=== PATIENT | female | born 1975 | race Asian ===

== ENCOUNTER → 2021-03-19 13:51 | Outpatient (CLI) | payer OTHER, SELFPAY ==
--- NOTE | ~2021-03-19 | MM_ITS ---
EXAMINATION: MM screening jayla BI w angelito HISTORY: Screening mammogram TECHNIQUE: Craniocaudal and mediolateral oblique 3-D tomosynthesis images were obtained and synthetic 2-D images were generated. CAD analysis was submitted and interpreted. COMPARISON: No prior mammogram is available for comparison at this institution. BREAST PARENCHYMAL COMPOSITION: There are scattered areas of fibroglandular density. FINDINGS: There is a biopsy marker in the lower left inner breast; history of prior benign biopsy of microcalcifications at this site. There is no evidence of suspicious mass, calcification, or architec tural distortion to suggest malignancy in either breast. There has been no suspicious interval change . IMPRESSION: 1. No mammographic evidence of malignancy. 2. Recommend routine screening mammography in one year. BI-RADS Category 1: Negative Reviewed, dictated and finalized at location A.
== END ==
PROVIDERS: Visit Provider Obstetrics & Gynecology
DX: Z12.31 Encounter for screening mammogram for malignant neoplasm of breast (principal)
CPT/HCPCS: 77063; 77067

== ENCOUNTER 2021-06-01 01:21 | Day surgery (SDC) | payer OTHER, SELFPAY ==
[2021-04-02 15:17] VITALS: BMI 30.2
[2021-05-20 11:41] VITALS: BMI 30.2
--- NOTE | 2021-06-01 08:03 | P.PNAN_ITS ---
Anes - Initial Pre Proc Eval Procedure: Operation Date: 06/01/21 11:15 Proposed Procedures p Screening Colonoscopy - Medhat Best MD Date/Time: 06/01/21 08:03 Surgeon: Medhat Best MD Pre Op Diagnosis: neoplasm screening Patient Data Age: 46 Gender: F Height: 1.73 m Weight: 90 kg Allergies Allergy/AdvReac Type Severity Reaction Status Date / Time No Known Allergies Allergy Mild Verified 06/01/21 10:22 Home Medications Medication Instructions Recorded Confirmed Type hydrochlorothiazide 12.5 mg PO DAILY 05/28/21 06/01/21 History Patient hx anesthesia problems: none Family hx anesthesia problems: none Results Review: All pre-operative results and documents have been reviewed as part of the pre-operative evaluation. [facility] Past Medical History Medical History (Updated 06/01/21 @ 08:03 by Jeremy Holm MD) HTN (hypertension) Obesity Social History Social History Smoking status: Never smoker Alcohol intake: current Living arrangements: with family Spiritual care concerns: No Anes - Eval Final PreProcedure Day of Procedure 06/01/21 08:03 Patient weight: obese Heart: regular rate and rhythm Lungs: clear to auscultation and normal air movement Airway: Mallampati scale class II Neurological: alert and oriented Last oral intake: >/= 8 hours ASA classification: II Emergent: no Anesthetic plan: proceed Anesthesia type and monitoring: general GIVS Results Review: All pre-operative results and documents have been reviewed as part of the pre-operative evaluation. Informed Consent: The patient's anesthetic plan and its attendant risks and benefits were discussed with the patient/family/POA. Questions were solicited and answers provided to the satisfaction of the patient/family/POA.
[2021-06-01 10:23] VITALS: BP 122/90; PULSE 78; RESP 16; TEMP 36.8; O2SAT 97; BMI 29.7
[2021-06-01] MEDS: LACTATED RINGERS 1,000 ML 150 ML IV CONT (10:26)
--- NOTE | 2021-06-01 10:54 | PM.HPGS ---
History of Present Illness History of Present Illness Consent: Risks, benefits, and alternatives have been discussed and questions answered. Patient agrees to proceed with procedure. Chief complaint: neoplasm screening Narrative: Raheem Deng is a 46 year old female here for first screening colonoscopy Review of Systems Constitutional: Constitutional: Denies headache(s) and Denies weakness Eyes: Eyes: Denies blurry vision ENT: Reports Normal hearing present, Denies headache(s) and Denies neck pain Cardiovascular: Cardiovascular: Denies chest pain and Denies dyspnea Respiratory: Respiratory: Denies dyspnea Gastrointestinal: Gastrointestinal: Reports no additional gastrointestinal complaints Genitourinary: Genitourinary: Denies dysuria Musculoskeletal: Musculoskeletal: Denies neck pain Integumentary/Breasts: Skin/Breast: Denies dry skin Neurologic: Reports Normal hearing present, Denies headache(s) and Denies weakness Psychiatric: Psychiatric: Denies anxiety Endocrine: Endocrine: Denies change in body appearance Hematologic/Lymphatic: Hematologic/Lymphatic: Denies easy bleeding Allergic/Immunologic: Allergic/Immunologic: Denies urticaria PMF Past Medical History Medical History (Updated 06/01/21 @ 10:54 by Medhat Best MD) Colon cancer screening HTN (hypertension) Obesity Social History Social History Smoking status: Never smoker Alcohol intake: current Living arrangements: with family Spiritual care concerns: No Meds Home Medications and Allergies Home Medications Medication Instructions Recorded Confirmed Type hydrochlorothiazide 12.5 mg PO DAILY 05/28/21 06/01/21 History Allergies Allergy/AdvReac Type Severity Reaction Status Date / Time No Known Allergies Allergy Mild Verified 06/01/21 10:22 Vital Signs Vital Signs - 24 hr 06/01/21 10:23 Temperature 98.2 F Pulse Rate 78 Respiratory Rate 16 Blood Pressure 122/90 Pulse Oximetry 97 Exam Const: General: comfortable and no acute distress HENMT: General nose exam: Normal nares present Eyes: General: appearance normal, both eyes and all related structures Neck: Neck: no JVD Resp: Auscultation: clear to auscultation bilaterally Cardio: Rate: regular rate Rhythm: regular rhythm GI: Inspection: non-distended GI Palp: Yes Soft to palpation Skin: General skin exam: normal color Neuro: General: gait normal Speech: normal speech Extrem: General: normal to inspection Psych: Mental Status: mental status grossly normal Assessment and Plan Assessment and plan (1) Colon cancer screening: Code(s): Z12.11 - Encounter for screening for malignant neoplasm of colon Status: Acute Assessment and Plan: colonoscopy
[2021-06-01 11:15] VITALS: BP 106/73; PULSE 73; RESP 21; O2SAT 99
[2021-06-01 11:25] VITALS: BP 118/63; PULSE 72; RESP 16; O2SAT 98
[2021-06-01 11:35] VITALS: BP 121/92; PULSE 66; RESP 20; O2SAT 97
== END 2021-06-01 12:15 | disposition home or self-care (01) ==
PROVIDERS: PCP Family Medicine; Visit Provider Internal Medicine Gastroenterology
PROC: 0DJD8ZZ Inspection of Lower Intestinal Tract, Via Natural or Artificial Opening Endoscopic (ICD-10-PCS; CPT 45378; principal; 2021-06-01 11:15)
DX: Z12.11 Encounter for screening for malignant neoplasm of colon (principal); D12.3 Benign neoplasm of transverse colon; D12.5 Benign neoplasm of sigmoid colon; K64.8 Other hemorrhoids; I10 Essential (primary) hypertension; E66.9 Obesity, unspecified; Z68.29 Body mass index [BMI] 29.0-29.9, adult
CPT/HCPCS: 45385; 88305; J2704; J7120

== ENCOUNTER → 2022-07-01 10:26 | Outpatient (CLI) | payer SELFPAY ==
--- NOTE | ~2022-07-01 | MM_ITS ---
EXAMINATION: MM screening jayla BI w nagelito HISTORY: Screening TECHNIQUE: Craniocaudal and mediolateral oblique 3-D tomosynthesis images were obtained and synthetic 2-D images were generated. CAD analysis was submitted and interpreted. COMPARISON: Comparison to multiple prior studies sequentially, with oldest reviewed study dated 11/30. BREAST PARENCHYMAL COMPOSITION: Breast composed of scattered areas of fibroglandular density FINDINGS: Stable benign-appearing left breast calcifications. There is no evidence of suspicious mass , calcification, or architectural distortion to suggest malignancy in either breast. There has been n o suspicious interval change. IMPRESSION: 1. No mammographic evidence of malignancy. 2. Recommend routine screening mammography in one year. BI-RADS Category 2: Benign finding(s). Reviewed, dictated and finalized at location A. 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
== END ==
PROVIDERS: PCP Nurse Practitioner; Visit Provider Nurse Practitioner
DX: Z12.31 Encounter for screening mammogram for malignant neoplasm of breast (principal)
CPT/HCPCS: 77063; 77067

== ENCOUNTER 2023-07-13 15:57 | Outpatient (CLI) | payer OTHER, SELFPAY ==
--- NOTE | ~2023-07-13 | MM_ITS ---
EXAMINATION: MM screening [facility] BI w angelito HISTORY: Screening mammogram TECHNIQUE: Craniocaudal and mediolateral oblique 3-D tomosynthesis images were obtained and synthetic 2-D images were generated. CAD analysis was submitted and interpreted. COMPARISON: 07/01/2022, 03/19/2021, 01/08/2019, 11/30/2018 BREAST PARENCHYMAL COMPOSITION: The breasts are heterogeneously dense, which may obscure small masses . FINDINGS: There are stable punctate left breast calcifications which are previously undergone biopsy. No suspicious mass, calcification, or architectural distortion are identified in either breast to ramirez ggest malignancy. There has been no suspicious interval change. IMPRESSION: 1. No mammographic evidence of malignancy. 2. Recommend routine screening mammography in one year. BI-RADS Category 2: Benign finding(s). Reviewed, dictated and finalized at location A. T PHLEBOTOMIST
== END 2023-07-13 15:58 ==
PROVIDERS: PCP Nurse Practitioner; Visit Provider Nurse Practitioner
DX: Z12.31 Encounter for screening mammogram for malignant neoplasm of breast (principal)
CPT/HCPCS: 77063; 77067

== ENCOUNTER 2024-08-06 09:04 | Outpatient (CLI) | payer SELFPAY ==
--- NOTE | ~2024-08-06 | MM_ITS ---
EXAMINATION: MM diagnostic jayla LT w angelito HISTORY: Clustered left breast calcifications TECHNIQUE: Additional 3-D tomosynthesis images of the left breast were performed and synthetic 2-D im ages were generated. CAD analysis was submitted and interpreted. COMPARISON: Comparison to multiple prior studies sequentially, with oldest reviewed study dated 04/04. BREAST PARENCHYMAL COMPOSITION: Dense: The breasts are heterogeneously dense, which may obscure small masses FINDINGS: There is a are regional punctate indeterminate calcifications in the lower inner quadrant o f the left breast, middle third. There are no discrete masses or architectural distortion. IMPRESSION: 1. Regional indeterminate clustered calcifications lower inner quadrant of the left breast. 2. Stereotactic left breast biopsy recommended. BI-RADS category 4, suspicious findings. Reviewed, dictated and finalized at location A. 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
== END 2024-08-06 09:05 | disposition home or self-care (01) ==
PROVIDERS: PCP Physician Assistant; Visit Provider Nurse Practitioner
DX: R92.8 Other abnormal and inconclusive findings on diagnostic imaging of breast (principal)
CPT/HCPCS: 77061; 77065; G0279

== ENCOUNTER 2024-08-30 09:26 | Outpatient (CLI) | payer OTHER, SELFPAY ==
--- NOTE | ~2024-08-30 | MM_ITS ---
MM post biopsy diagnostic LT, MM stereotactic specimen LT, MM stereotactic bx LT EXAMINATION: MM post biopsy diagnostic LT, MM stereotactic specimen LT, MM stereotactic bx LT INDICATION: Abnormal mammogram with Calcifications in the left breast. Stereotactic core biopsy is r equested evaluate for malignancy.] BREAST PARENCHYMAL COMPOSITION: Dense: The breasts are heterogeneously dense, which may obscure small masses TECHNIQUE AND FINDINGS: The risks and potential benefits of the procedure were discussed with the patient and written informe d consent was obtained. The patient was placed in the prone position clustered at the table with the breast in craniocaudal compression, and the area of interest was localized and targeted utilizing di gital imaging with stereotaxis. After sterile preparation of the skin, 1% lidocaine was utilized for local anesthesia at the skin pun cture site and 1% lidocaine with epinephrine was utilized for deeper local anesthesia/is about the bi opsy site. A 9G Eviva vacuum assisted biopsy needle was advanced to the level of the calcification o f interest from a cephalad/caudal/medial/lateral approach utilizing stereotactic guidance and a total of 6 tissue core biopsies were obtained. A specimen radiograph demonstrates that the calcifications of interest are included within the tissue cores. A tissue marker clip was then placed at the biopsy site. The needle was removed and hemosta sis was achieved. The patient tolerated the procedure well and there is no evidence of significant i mmediate complication. The patient was given verbal as well as written postprocedural instructions p rior to discharge from the department. Tissue cores were submitted to surgical pathology for histolo gic analysis. A 2-view left unilateral digital mammogram was obtained post procedure and this demonstrates that the tissue marker clip is in expected position.] IMPRESSION: 1. Successful stereotactic biopsy of calcifications in the lower inner quadrant of the left breast w ith post procedure mammogram for marker placement. Please refer to pathology report for histologic a nalysis. Reviewed, dictated and finalized at location B. OMIC CONSULTANT IMPRESSION: 1. Successful stereotactic biopsy of calcifications in the lower inner quadran t of the left breast with post procedure mammogram for marker placement. Pleas e refer to pathology report for histologic analysis. IMPRESSION: 1. Successful stereotactic biopsy of calcifications in the lower inner quadran t of the left breast with post procedure mammogram for marker placement. Pleas e refer to pathology report for histologic analysis.
--- OUTSIDE RECORDS SUMMARY | 2024-08-30 09:34 | XMS_ITS | Patient Health Summary ---
Author Organization [facility] Address [address] [place] [address] Care Team Providers Care Corporate Planner Name Role Phone Unavailable Primary Care Provider Unavailabl e Note from [facility],non-owned Affiliates and Associated Physician Practices is amultiple site organization consisting of ambulatory clinics and hospital sitesin [place], [place], [place] and [place]. This disclosure is being madepursuant to the Care Everywhere program and may not contain all information available regarding this patient. Last updated 18.[facility] Active Problems Problem Noted Date Diagnosed Date Encounter for genetic counseling and testing Maternal age 39 09/03/2014 Social History Tobacco Use Types Packs/Day Years Used Date Smoking Tobacco: Never Assessed Sex and Gender Information Value Date Recorded Sex Assigned at Not on file Gender Identity Not on file Sexual Orientation Not on file Procedures * FIRST TRI NUCHAL TRANSLUCENCY W:SEQ SCREEN(Performed 09/03/2014) Performed for Encounter for nuchal translucency testing (HCC) Results * FIRST TRI NUCHAL TRANSLUCENCY W:SEQ SCREEN (09/03/2014 2:08 PM MATHEMATICS INSTRUCTOR) Anatomical Region Laterality Modality Other 09/03/2014 2:08 PM MATHEMATICS INSTRUCTOR Narrative 09/03/2014 3:42 PM MATHEMATICS INSTRUCTOR [facility] PHONE: FAX: Pat. Name: ALICE BECKMAN Pat. No: [id number] Study Date: 09/03/2014 2:08pm , Age: 11 1975, 39 Weight: 178 lb LMP: 06/12/2014 GA by LMP: 11w6d GA by US: 12w1d GA Selected: 11w6d (LMP) NORTH: 03/19/2015 Referring MD: Neena Fontana MD Mails Supervisor: Zoie Lomas RDMS Hist/Ind: AMA MEASUREMENTS & AGE GROWTH EVALUATION Measurement GA Range Srce %for GA Ratios ----- ---- ------- CRL 5.5 cm 12w1d ([id number]) Hadl CRL 59% GA for sonogram 12w1d ([id number]) based on (CRL) Avg Heart Rate: 164 bpm CLINICAL SUMMARY Study Number: 1 IMPRESSION: 1) Stephenson gestation, 11w6d 2) CRL measurement is consistent with the LMP-based NORTH of 03/19/15 3) The nuchal translucency is subjectively <3 mm RECOMMEND: 1) Await results of noninvasive testing (NIPT) ordered today 2) Detailed anatomic survey around 20 weeks Thank you for allowing us the opportunity to care for your patient. Luisa Black MD <Electronic Signature> 09/03/2014 03:42pm Neena Fontana MD [facility] ORDERABLES
--- OUTSIDE RECORDS SUMMARY | 2024-08-30 09:34 | XMS_ITS | Data Portability ---
Author Organization [facility] [place] Address [address] [place] [address] Care Team Providers Care Seismic Survey Assistant Name Role Phone OSMEL SMITH Primary Care Provider Assessment Encounter Date Assessment Date Assessment LastModified by Organization Details LastModified Time 02/27/2021 02/27/2021 healthy female exam patient declines std testing pap done, colpo if still abnormal, reinforced importance of follow up mammogram ordered and encouraged colonoscopy referral contraception-de clines TSH and A1C, encouraged to get PCP FU 1 year or prn [email or web address] Not available 02/27/2021 13:54:38 03/22/2022 03/22/2022 Annual gynecological exam performed. Patient will come back in a year unless there are new symptoms. [email or web address] Not available 03/22/2022 15:29:41 03/24/2023 03/24/2023 Annual gynecological exam performed. Patient will come back in a year unless there are new symptoms. [email or web address] Not available 03/24/2023 11:01:56 04/26/2024 04/26/2024 Annual gynecological exam performed. Patient will come back in a year unless there are new symptoms. Not available 04/26/2024 10:48:16 Plan of Treatment Reminders Order Date Submit Date Provider Last Modified By Organization Details Last Modified Time Details Appointments None recorded. Lab CBC w/ auto diff 2023 024 [facility] (Lab), [address], [place], [address], 10/18/202 4 10:44:02 CMP, serum or plasma 2023 024 [facility] (Lab), [address], [place], [address], 4 10:44:03 lipid panel, blood 2023 024 [facility] (Lab), [address], [place], [address], 4 10:44:03 TSH, serum or plasma 2023 024 [facility] (Lab), [address], [place], [address], 4 10:44:04 25-hydroxyv itamin D2 + 25-hydroxyv itamin D3, QN, serum or plasma 2023 024 [facility] (Lab), [address], [place], [address], 4 10:44:04 TSH, serum or plasma 2020 021 [facility] (Lab), [address], [place], [address], 1 04:44:58 HbA1c (hemoglobin A1c), blood 2020 021 [facility] (Lab), [address], [place], [address], 1 04:44:59 Referral None recorded. Procedures None recorded. Surgeries None recorded. Imaging MAMMO, screening, digital, bilateral 2022 023 [facility], [address], [place], [address], 4 07:52:49 MAMMO, screening, bilateral 2021 022 [facility], [address], [place], [address], 2 12:28:40 Medication Orders estradiol 1 mg tablet 2023 [facility] #[id number], [address] [facility], [place], [place], [id number], 4 11:44:12 progesteron e micronized 100 mg capsule 2023 [facility] #[id number], [address] [facility], [place], [place], [id number], 4 11:44:12 Patient TargetsNo targets recorded. Patient InstructionsNo instructions recorded. Reason for Referral None Reported. Results Created Date Observation Date Name Description Value Unit Range Abnormal Flag Note LastModifiedBy Organization Detail LastModifiedTime 02/28/2002/27/2021 TSH, REFLE X FREE T4 TSH 2.74 uIU/m L 0.30-5 .33 Not Available [facility] (Lab) [address], [place], [address], 02/28/2021 04:44:58 02/28/2002/27/2021 HEMOG LOBIN A1C hemoglobin A1C 6.3 % 0-5.6 high The Ameri can Diabe j luis Assoc iatio n recom mends that a prima ry goal of thera py debra d be a HBA1C of < 7% and that physi cians shoul d reeva luate the treat ment regim en in patie nts with HBA1C value s consi stent ly > 8%. <5.7% Jacquie l 5.7 - 6.4% Incre ased risk for diabe j luis >=6.5 % Diagn ostic of diabe j luis <7.0% Goal of thera py >8.0% Actio n mimi stesergei Not Available [facility] (Lab) [address], [place], [address], 02/28/2021 04:44:58 02/28/2002/27/2021 IMAGE GUIDE D PAP AND HPV REGAR DLESS image guided Pap, HPV regardless of Pap result SEE RESULT S BELOW CASE REPOR T: Cytol ogy Gynec ologi rah Repor t Case: [id number] Autho andreia joseph Provi freddy: Pam Amador MD Colle cted: 02/27 1306 Order ing Locat ion: [place] Patho log[facility] Recei katie: 02/28 0050 First Scree n: Leo Byrd , CT Speci men: Magda bobby Pap - Image d, Cervi x STATE MENT OF ADEQU ACY: Satis facto ry for evalu ation Trans forma tion zone compo nent prese nt FINAL DIAGN OSIS: Negat rosales for Intra epith elial Lesbrandon n or Robert coon (NIL) Elect artie aguirre betty d by Leo Byrd , CT on 2020 at 5:34 PM ----- ----- ----- ----- ----- ----- ----- ----- ----- ----- ----- ----- ----- ----- ----- ----- ----- ---- HPV RESUL TS: HPV mRNA E6/E7 : No HPV mRNA Detec emilie NOTE: This high risk HPV mRNA assay detec ts fourt een high- risk HPV types (16, 18, 31, 33, 35, 39, 45, 51, 52, 56, 58, 59, 66, 68) witho ut diffe renti ation . COMME NT: Note: This speci men was revie wed by a Cytot echno logis t and/o r Patho logis t (as indic ated in this repor t) after evalu ation using the Thinp rep Imagi ng Syste m. CLINI RAH INFOR MATIO N: Menst rual Statu s: LMP (if appli cable ): 2020 Clini rah Histo ry/Pr eviou s Pap: Type of Neopl kleber (if appli cable ): Signi fican t Clini rah Findi ngs: Other Histo ry: Hormo jay (if appli cable ): PAP EDUCA STEFFI L NOTE: The Pap Test is a scree kanu test with an inher ent false negat rosales rate. Liqui d-bas e sampl ing may decre ase, but will not elimi ada, false negat rosales resul ts. A negat rosales resul t does not precl ude the prese nce and/o r devel opmen t of disea se, since the prese nce of abnor mal cells in the sampl e depen ds on the locat ion of the lesio n and sampl ing techn ique. Yao nued regul ar scree kanu is the best metho d of cance r preve ntion . If repor emilie cytol ogic findi ng do not corre late with physi rah and/o r histo rical findi ngs, furth er inves tigat ion is recom moe d, as clini mariana lockwood nted. Not Available [facility] (Lab) [address], [place], [address], 03/02/2021 18:37:35 03/22/20 22 03/22/2022 IMAGE GUIDE D PAP AND HPV REGAR DLESS image guided Pap, HPV regardless of Pap result SEE RESULT S BELOW CASE REPOR T: Cytol ogy Gynec ologi rah Repor t Case: [id number] Autho rianíbaln g Provi freddy: Nessa Proctor, GALA Colle cted: 03/22 1650 Order ing Locat ion: [place] Patho logy Recei katie: 03/23 0152 First Scree n: Nacha mpass ak, Sivil ay, CT Patho logis t: Latricia Chu MD Speci men: Scree kanu Pap - Image d, Cervi x STATE MENT OF ADEQU ACY: Satis facto ry for evalu ation Trans forma tion zone compo nent prese nt FINAL DIAGN OSIS: Negat rosales for Squam ous Intra epith elial Lesio n. Endom etria l cells prese nt in a woman over 45 years of age. Elect artie aguirre betty d by Latricia Chu MD on 2021 at 11:09 AM ----- ----- ----- ----- ----- ----- ----- ----- ----- ----- ----- ----- ----- ----- ----- ----- ----- ---- HPV RESUL TS: HPV mRNA E6/E7 : No HPV mRNA Detec emilie NOTE: This high risk HPV mRNA assay detec ts fourt een high- risk HPV types (16, 18, 31, 33, 35, 39, 45, 51, 52, 56, 58, 59, 66, 68) witho ut diffe renti ation . COMME NT: Note: This speci men was revie wed by a Cytot echno logis t and/o r Patho logis t (as indic ated in this repor t) after evalu ation using the Thinp rep Imagi ng Syste m. CLINI RAH INFOR MATIO N: Menst rual Statu s: LMP (if appli cable ): Clini rah Histo ry/Pr eviou s Pap: Type of Neopl kleber (if appli cable ): Signi fican t Clini rah Findi ngs: Other Histo ry: Hormo jay (if appli cable ): PAP EDUCA STEFFI L NOTE: Endom etria l cells after age 45, parti cular ly out of phase or after menop ause, may be assoc iated with benig n endom etriu m, hormo nal alter ation s and less commo nly, endom etria l/[place] rine abnor malit ies. Clini rah corre neli n is recom moe d. Not Available [facility] [address], [place], [address], 03/29/2022 12:11:50 03/24/20 23 03/24/2023 IMAGE GUIDE D PAP AND HPV REGAR DLESS image guided Pap, HPV regardless of Pap result SEE RESULT S BELOW CASE REPOR T: Cytol ogy Gynec ologi rah Repor t Case: [id number] Autho andreia joseph Provi freddy: Nessa Proctor NP Colle cted: 03/24 1444 Order ing Locat ion: [place] Patho [place]y Recei katie: 03/25 0321 First Scree n: Padmaja paz, Ramses ed, CT Speci men: Magda bobby Pap - Image d, Cervi x STATE MENT OF ADEQU ACY: Satis facto ry for evalu ation Trans forma tion zone compo nent prese nt FINAL DIAGN OSIS: Negat rosales for Intra epith elial Lesio n or Robert coon (NIL) . Elect artie aguirre betty d by Padmaja paz, Ramses weaver, CT on 2022 at 7:53 PM ----- ----- ----- ----- ----- ----- ----- ----- ----- ----- ----- ----- ----- ----- ----- ----- ----- ---- HPV RESUL TS: HPV mRNA E6/E7 : No HPV mRNA Detec emilie NOTE: This high risk HPV mRNA assay detec ts fourt een high- risk HPV types (16, 18, 31, 33, 35, 39, 45, 51, 52, 56, 58, 59, 66, 68) witho ut diffe renti ation . COMME NT: This speci men was revie wed by a Cytot echno logis t and/o r Patho logis t (as indic ated in this repor t) after evalu ation using the Thinp rep Imagi ng Syste m. CLINI RAH INFOR MATIO N: Menst rual Statu s: LMP (if appli cable ): Clini rah Histo ry/Pr eviou s Pap: Type of Neopl kleber (if appli cable ): Signi fican t Clini rah Findi ngs: Other Histo ry: Hormo jay (if appli cable ): PAP EDUCA STEFFI L NOTE: The Pap Test is a scree kanu test with an inher ent false negat rosales rate. Liqui d-bas ed sampl ing may decre ase, but will not elimi ada, false negat rosales resul ts. A negat rosales resul t does not precl ude the prese nce and/o r devel opmen t of disea se, since the prese nce of abnor mal cells in the sampl e depen ds on the locat ion of the lesio n and sampl ing techn ique. Yao nued regul ar scree kanu is the best metho d of cance r preve ntion . If repor emilie cytol ogic findi ng do not corre late with physi rah and/o r histo rical findi ngs, furth er inves tigat ion is recom moe d, as clini mariana lockwood nted. Not Available [facility] (Lab) [address], [place], [address], 03/27/2023 20:56:20 04/26/20 24 04/26/2024 CBC W/DIF F WBC 5.9 10'3/ uL 3.5-10 .5 Not Available [facility] (Lab) [address], [place], [address], 04/27/2024 10:44:02 04/26/20 24 04/26/2024 CBC W/DIF F RBC 4.85 10'6/ uL (based on docume nted legal sex) 3.80-5 .20 Not Available [facility] (Lab) [address], [place], [address], 04/27/2024 10:44:02 04/26/20 24 04/26/2024 CBC W/DIF F HGB 13.8 g/dL (based on docume nted legal sex) 11.6-1 5.4 Not Available [facility] ([facility]) [address], [place], [address], 04/27/2024 10:44:02 04/26/20 24 04/26/2024 CBC W/DIF F HCT 44.5 % (based on docume nted legal sex) 34.0-4 5.0 Not Available [facility] ([facility]) [address], [place], [address], 04/27/2024 10:44:02 04/26/20 24 04/26/2024 CBC W/DIF F MCV 91.8 fL 80.0-9 9.0 Not Available [facility] (Lab) [address], [place], [address], 04/27/2024 10:44:02 04/26/20 24 04/26/2024 CBC W/DIF F MCH 28.5 pg 27.0-3 4.0 Not Available [facility] ([facility]) [address], [place], [address], 04/27/2024 10:44:02 04/26/20 24 04/26/2024 CBC W/DIF F MCHC 31.0 g/dL 32.0-3 5.5 low Not Available [facility] ([facility]) [address], [place], [address], 04/27/2024 10:44:02 04/26/20 24 04/26/2024 CBC W/DIF F RDW 12.8 % 11.0-1 5.0 Not Available [facility] ([facility]) [address], [place], [address], 04/27/2024 10:44:02 04/26/20 24 04/26/2024 CBC W/DIF F plt 301 10'3/ uL 150-40 0 Not Available [facility] ([facility]) [address], [place], [address], 04/27/2024 10:44:02 04/26/20 24 04/26/2024 CBC W/DIF F MPV 10.4 fL 8.8-12 .1 Not Available [facility] (Lab) [address], [place], [address], 04/27/2024 10:44:02 04/26/20 24 04/26/2024 CBC W/DIF F NRBC's 0.0 % 0.0 Not Available [facility] ([facility]) [address], [place], [address], 04/27/2024 10:44:02 04/26/20 24 04/26/2024 CBC W/DIF F absolute NRBCs 0.0 10'3/ uL no refere nce range establ ished Not Available [facility] ([facility]) [address], [place], [address], 04/27/2024 10:44:02 04/26/20 24 04/26/2024 CBC W/DIF F neutrophils 59.1 % 34.0-7 3.0 Not Available [facility] ([facility]) [address], [place], [address], 04/27/2024 10:44:02 04/26/20 24 04/26/2024 CBC W/DIF F lymphocytes 31.1 % 15.0-5 0.0 Not Available [facility] ([facility]) [address], [place], [address], 04/27/2024 10:44:02 04/26/20 24 04/26/2024 CBC W/DIF F monocytes 5.1 % 1.0-15 .0 Not Available [facility] ([facility]) [address], [place], [address], 04/27/2024 10:44:02 04/26/20 24 04/26/2024 CBC W/DIF F eosinophils 3.6 % 0.0-8. 0 Not Available [facility] ([facility]) [address], [place], [address], 04/27/2024 10:44:02 04/26/20 24 04/26/2024 CBC W/DIF F basophils 0.9 % 0.0-2. 0 Not Available [facility] ([facility]) [address], [place], [address], 04/27/2024 10:44:02 04/26/20 24 04/26/2024 CBC W/DIF F immature granulocytes 0.2 % no define d refere nce range Not Available [facility] ([facility]) [address], [place], [address], 04/27/2024 10:44:02 04/26/20 24 04/26/2024 CBC W/DIF F absolute neutrophils 3.5 10'3/ uL 1.5-8. 0 Not Available [facility] ([facility]) [address], [place], [address], 04/27/2024 10:44:02 04/26/20 24 04/26/2024 CBC W/DIF F absolute lymphocytes 1.8 10'3/ uL 1.0-4. 0 Not Available [facility] ([facility]) [address], [place], [address], 04/27/2024 10:44:02 04/26/20 24 04/26/2024 CBC W/DIF F absolute monocytes 0.3 10'3/ uL 0.2-1. 0 Not Available [facility] ([facility]) [address], [place], [address], 04/27/2024 10:44:02 04/26/20 24 04/26/2024 CBC W/DIF F absolute eosinophils 0.2 10'3/ uL 0.0-0. 6 Not Available [facility] ([facility]) [address], [place], [address], 04/27/2024 10:44:02 04/26/20 24 04/26/2024 CBC W/DIF F absolute basophils 0.1 10'3/ uL 0.0-0. 3 Not Available [facility] ([facility]) [address], [place], [address], 04/27/2024 10:44:02 04/26/20 24 04/26/2024 CBC W/DIF F absolute immature granulocytes 0.0 10'3/ uL 0.00-0 .10 04/27 7:37 AM: P indic ates parti al resul ts on a panel have been relea sed. Addit ional resul ts will follo w. 04/27 7:37 AM: This resul t has been final verif ied. No addit ional or goss ed resul ts are expec emilie. Not Available [facility] ([facility]) [address], [place], [address], 04/27/2024 10:44:02 04/26/20 24 04/26/2024 LIPID PANEL ,AMA (LDL- CALC) total cholesterol 251 mg/dL 0-199 high Not Available [facility] (Lab) [address] [place], [address], 04/27/2024 10:44:03 04/26/20 24 04/26/2024 LIPID PANEL ,AMA (LDL- CALC) triglyceride s 107 mg/dL 0-150 NCEP Refer ence Value s for Trigl yceri santiago: Jacquie l: <150 mg/dL Borde rline High: 150 - 199 mg/dL High: 200 - 499 mg/dL Very High: >/= 500 mg/dL Not Available [facility] (Lab) [address] [place], [address], 04/27/2024 10:44:03 04/26/20 24 04/26/2024 LIPID PANEL ,AMA (LDL- CALC) HDL cholesterol 65 mg/dL >40 Not Available [facility] (Lab) [address] [place], [address], 04/27/2024 10:44:03 04/26/20 24 04/26/2024 LIPID PANEL ,AMA (LDL- CALC) LDL cholesterol 164 mg/dL 0-99 high Cutof f value s recom moe d by the Natio nal Antoinette stero l Educa tion Progr am: TIM ABLE: Antoinette stero l <200 mg/dL LDL <100 mg/dL BORDE RLINE : Antoinette stero l 200-2 39 mg/dL LDL 101-1 59 mg/dL HIGHE R RISK: Antoinette stero l >240 mg/dL LDL >160 mg/dL , HDL <40 mg/dL Not Available [facility] ([facility]) [address], [place], [address], 04/27/2024 10:44:03 04/26/20 24 04/26/2024 LIPID PANEL ,AMA (LDL- CALC) non-HDL cholesterol 186 mg/dL no refere nce range A reaso nable goal for non-H DL antoinette stero l is one that is 30 mg/dL highe r than the LDL antoinette stero l goal. Not Available [facility] ([facility]) [address], [place], [address], 04/27/2024 10:44:03 04/26/20 24 04/26/2024 LIPID PANEL ,AMA (LDL- CALC) chol/HDL ratio 3.9 . 0.0-5. 0 On November 02, 2022, [facility] labor atori es goss ed the equat ion for calcu latin g estim ated low-d ensit y lipop rotei n-cho leste rol (LDL- C) from the Fried raad equat ion to the Yasmeen jonatan/Prema cage equat ion. This new equat ion is only valid for lipid panel s with trigl yceri santiago < 400 mg/dL . Rolyi es edward demon strat ed that this new equat ion will impro ve the accur acy of LDL-C , espec ially in scena yee when LDL-C tari ntrat ions are relat ively low (< 100 mg/dL ), trigl yceri santiago are eleva emilie, or patie nt is non-f astin g. Refer ences : - Min Mosley, Omega Perry , Ramses marr, Andrew Car, Andrew thompson, Junito [facility] , and Eric Garcia . 2013. Comp ariso n of a Novel Metho d vs the Fried raad Equat ion for Estim ating Low-D ensit y Lipop rotei n Antoinette stero l Level s from the Stand semaj Lipid Olivia hinton. SOL: The Journ al of the Ameri can Medic al Assoc iatio n 310 (19): 2060- . - Donovan faye V, Erica J, Brayan faye A, Barry M, Sathish josih R, Oil faye E, Justin crain RS, Jose SR, Yasmeen n SS. Fast ing Versu s Nonfa sting and Low-D ensit y Lipop rotei n Antoinette stero l Accur acy. Circu latio n. 2017Jul 12;137 (1):1 0-19. Not Available [facility] ([facility]) [address], [place], [address], 04/27/2024 10:44:03 04/26/20 24 04/26/2024 CMP(C OMPRE HENSI VE METAB OLIC PANEL ) sodium 142 mmol/ L 133-14 6 Not Available [facility] ([facility]) [address] [place], [address], 04/27/2024 10:44:03 04/26/20 24 04/26/2024 CMP(C OMPRE HENSI VE METAB OLIC PANEL ) potassium 4.0 mmol/ L 3.5-5. 1 Not Available [facility] ([facility]) [address] [place], [address], 04/27/2024 10:44:03 04/26/20 24 04/26/2024 CMP(C OMPRE HENSI VE METAB OLIC PANEL ) chloride 103 mmol/ L 98-107 Not Available [facility] ([facility]) [address] [place], [address], 04/27/2024 10:44:03 04/26/20 24 04/26/2024 CMP(C OMPRE HENSI VE METAB OLIC PANEL ) carbon dioxide 30 mmol/ L 21-31 Not Available [facility] ([facility]) [address] [place], [address], 04/27/2024 10:44:03 04/26/20 24 04/26/2024 CMP(C OMPRE HENSI VE METAB OLIC PANEL ) anion gap 9 mmol/ L 4-13 Not Available [facility] ([facility]) [address], [place], [address], 04/27/2024 10:44:03 04/26/20 24 04/26/2024 CMP(C OMPRE HENSI VE METAB OLIC PANEL ) blood urea nitrogen 17 mg/dL 7-25 Not Available [facility] (Lab) [address], [place], [address], 04/27/2024 10:44:03 04/26/20 24 04/26/2024 CMP(C OMPRE HENSI VE METAB OLIC PANEL ) creatinine 0.86 mg/dL 0.60-1 .30 Not Available [facility] ([facility]) [address], [place], [address], 04/27/2024 10:44:03 04/26/20 24 04/26/2024 CMP(C OMPRE HENSI VE METAB OLIC PANEL ) egfrcr (CKD-epi 2020) 82 mL/mi n/1.7 3_m2 >=60 Not Available [facility] ([facility]) [address], [place], [address], 04/27/2024 10:44:03 04/26/20 24 04/26/2024 CMP(C OMPRE HENSI VE METAB OLIC PANEL ) calcium 9.7 mg/dL 8.3-10 .5 Not Available [facility] ([facility]) [address], [place], [address], 04/27/2024 10:44:03 04/26/20 24 04/26/2024 CMP(C OMPRE HENSI VE METAB OLIC PANEL ) glucose 112 mg/dL 70-100 high Not Available [facility] ([facility]) [address], [place], [address], 04/27/2024 10:44:03 04/26/20 24 04/26/2024 CMP(C OMPRE HENSI VE METAB OLIC PANEL ) protein, total 7.4 g/dL 6.4-8. 3 Not Available [facility] ([facility]) [address], [place], [address], 04/27/2024 10:44:03 04/26/20 24 04/26/2024 CMP(C OMPRE HENSI VE METAB OLIC PANEL ) albumin 4.4 g/dL 3.5-5. 0 Not Available [facility] ([facility]) [address], [place], [address], 04/27/2024 10:44:03 04/26/20 24 04/26/2024 CMP(C OMPRE HENSI VE METAB OLIC PANEL ) ALT 12 units /L 9-43 Not Available [facility] ([facility]) [address], [place], [address], 04/27/2024 10:44:03 04/26/20 24 04/26/2024 CMP(C OMPRE HENSI VE METAB OLIC PANEL ) alkaline phosphatase 71 units /L 34-104 Not Available [facility] ([facility]) [address], [place], [address], 04/27/2024 10:44:03 04/26/20 24 04/26/2024 CMP(C OMPRE HENSI VE METAB OLIC PANEL ) AST 12 units /L 13-39 low Not Available [facility] ([facility]) [address], [place], [address], 04/27/2024 10:44:03 04/26/20 24 04/26/2024 CMP(C OMPRE HENSI VE METAB OLIC PANEL ) bilirubin, total 0.4 mg/dL 0.2-1. 2 Not Available [facility] ([facility]) [address], [place], [address], 04/27/2024 10:44:03 04/26/20 24 04/26/2024 TSH, REFLE X FREE T4 TSH 1.93 uIU/m L 0.30-5 .33 Not Available [facility] ([facility]) [address], [place], [address], 04/27/2024 10:44:04 04/26/20 24 04/26/2024 VITAM IN D, 25-OH (TOTA L D2/D3 ) vitamin D, 25-hydroxy, total 55.2 NG/mL 30.0-1 00.0 [place] [address]ive of Defic iency : <20 ng/mL Sugge stive of Insuf ficie ncy: 20-29 ng/mL Sugge stive of Suffi cienc y: 30-10 0 ng/mL Sugge stive of Toxic ity: >150 ng/mL Not Available [facility] ([facility]) [address], [place], [address], 04/27/2024 10:44:04 03/19/20 21 03/19/2021 MAMMO , scree kanu, bilat eral No observ ation record ed. [facility] [address], [place], [address], 03/29/2021 18:30:18 07/01/20 22 07/01/2022 MAMMO , scree kanu, bilat eral No observ ation record ed. [facility] [address], [place], [address], 03/31/2023 11:45:42 07/14/19 24 07/13/2023 MAMMO , scree kanu, digit al, bilat eral No observ ation record ed. [facility] [address], [place], [address], 07/15/2023 16:27:58 07/23/19 25 07/20/2024 MAMMO , scree kanu, bilat eral No observ ation record ed. [facility] [address], [place], [address], 07/24/2024 15:31:00 08/06/19 25 08/06/2024 MAMMO , diagn ostic , unila teral No observ ation record ed. [email or web address] [facility] [address], [place], [address], 08/13/2024 19:12:33 08/07/19 25 08/06/2024 MAMMO , diagn ostic , unila teral No observ ation record ed. 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 1 10:23:09 Breast composit ion [id number] Completed 201802/27/2021 Inconclu sive mammogra m;Record ed Elsewher e: No [facility] S ource: EHR Child Welfare Social Worker cedric: N Practi ce ID: [id number] Paul lable Time: 01:30:00 PM Pam Duran MD [address], [place], [address], [facility] [address] 10:22:[address] Concept Completed 201802/27/2021 Encntr for general adult medical exam w/o abnormal findings ;Recorde d Elsewher e: No Locat ion: [facility] S ource: EHR Child Welfare Social Worker cedric: N Guy ce ID: [id number] Paul lable Time: 11:00:00 AM Pam Duran MD [address], [place], [address], [facility] 1 10:22:54 Human papillom avirus deoxyrib onucleic acid detected , high risk on cervical specimen [id number] Completed 201802/27/2021 Cervical high risk HPV DNA test positive ;Recorde d Elsewher e: No Locat ion: [facility] S ource: EHR Child Welfare Social Worker cedric: N Guy ce ID: [id number] Paul lable Time: 01:30:00 PM Pam Duran MD [address], [place], [address], [facility] 1 10:22:43 Pregnanc y test negative [id number] Completed 201802/27/2021 Encounte r for pregnanc y test, result negative ;Recorde d Elsewher e: No Locat ion: [facility] S ource: EHR Child Welfare Social Worker cedric: Jonatan Tovar ce ID: [id number] Paul lable Time: 01:30:00 PM Pam Duran MD [address], [place], [address], [facility] 1 10:22:51 Low grade squamous intraepi thelial lesion on cervical Papanico laou smear [id number] Completed 201802/27/2021 Low grade intrepit h lesion cyto smr crvx (LGSIL); Recorded Elsewher e: No Locat ion: [facility] S ource: EHR Child Welfare Social Worker cedric: Jonatan Tovar ce ID: [id number] Paul lable Time: 01:30:00 PM Pam Duran MD [address], [place], [address], [facility] [address] 10:23:[address] Concept Completed 201802/27/2021 Encntr for administrative liaison exam (general ) (routine ) w/o abn findings ;Recorde d Elsewher e: No Locat ion: Rosalina joshi [facility] S ource: EHR Child Welfare Social Worker cedric: N Practi ce ID: [id number] Paul lable Time: 11:00:00 AM Pam Duran MD [address], [place], [address], [facility] 1 10:22:55 Problem Notes None recorded. Procedures Surgical History Date Name Laterality Status Provider Name and Address Organization Details Recorded Time 4 Date of Last Mammogram completed [facility] 04/26/2024 10:51:40 3 Date of Last Pap Smear completed [facility] 04/26/2024 10:51:07 9 Colposcopy completed [facility] 02/27/2021 09:16:55 9 colposcopy completed [facility] 02/27/2021 09:18:34 1 delivery completed [facility] 02/27/2021 09:09:53 0 excision of uterine polyp completed [facility] 02/27/2021 09:10:07 Imaging Results Imaging Date Name Status LastModified by Organiz ation Details LastModified Time 03/19/2021 MAMMO, screening, bilateral completed [facility] [address], [place], [address], 03/29/2021 18:30:18 07/01/2022 MAMMO, screening, bilateral completed [facility] [address], [place], [address], 03/31/2023 11:45:42 07/13/2023 MAMMO, screening, digital, bilateral completed [facility] [address], [place], [address], 07/15/2023 16:27:58 07/20/2024 MAMMO, screening, bilateral completed [facility] [address], [place], [address], 07/24/2024 15:31:00 08/06/2024 MAMMO, diagnostic, unilateral completed [facility] [address], [place], [address], 08/13/2024 19:12:33 08/06/2024 MAMMO, diagnostic, unilateral completed [email or web address] [facility] [address], [place], [address], 08/13/2024 19:13:06 Procedure Notes None recorded. Medical Equipment None Reported. Allergies No known drug allergies Medications Name Sig Start Date Stop Date Status Note LastModified by Organization Details LastModified Time multivita min tablet 02/27 completed Prescrib ed Elsewher e: Yes Loca tion: [facility] M odify By: [email or web address] Encount er DateTime : 11/08/19 11:00:00 AM Not Available Not Available Not Available promethaz ine-DM 6.25 mg-15 mg/5 mL oral syrup TAKE 5 ML BY MOUTH EVERY 4 HOURS FOR 10 DAYS NEEDED 04/26 completed Not Available Not Available Not Available amlodipin e 2.5 mg tablet TAKE 1 TABLET BY MOUTH EVERY DAY 03/24 completed Not Available Not Available Not Available amlodipin e 5 mg tablet TAKE 1 TABLET BY MOUTH EVERY DAY 04/26 completed Not Available Not Available Not Available estradiol 1 mg tablet TAKE 1 TABLET BY MOUTH EVERY DAY active Not Available Not Available No t Available losartan 50 mg-hydroc hlorothia zide 12.5 mg tablet TAKE 1 TABLET BY MOUTH EVERY DAY IN THE MORNING active Not Available Not Available No t Available metformin ER 500 mg tablet,ex tended release 24 hr TAKE 2 TABLETS BY MOUTH EVERY DAY active Not Available Not Available No t Available progester one micronize d 100 mg capsule TAKE 1 CAPSULE BY MOUTH EVERY DAY active Not Available Not Available No t Available losartan 100 mg-hydroc hlorothia zide 12.5 mg tablet TAKE 1 TABLET BY MOUTH EVERY DAY 04/26 completed Not Available Not Available Not Available metformin ER 500 mg 24 hr tablet,ex tended release (gastric retention ) 04/26 completed Not Available Not Available Not Available Vitals Date Recorded Body height Body mass index (BMI) Body weight Systolic blood pressure Diastolic blood pressure Provider Name and Address Organization Details Last Updated DateTime 02/27/2021 172.72 cm 30.1 kg/m2 09158.29 g 127 mm[Hg] 87 mm[Hg] [facility] 1 10:18:36 Date Recorded Body height Body mass index (BMI) Body weight Systolic blood pressure Diastolic blood pressure Provider Name and Address Organization Details Last Updated DateTime 03/22/2022 172.72 cm 31 kg/m2 79239.56 g 112 mm[Hg] 76 mm[Hg] [facility] 2 15:30:07 Date Recorded Body height Body mass index (BMI) Body weight Systolic blood pressure Diastolic blood pressure Provider Name and Address Organization Details Last Updated DateTime 03/24/2023 172.72 cm 31.2 kg/m2 69443.44 g 125 mm[Hg] 83 mm[Hg] [facility] 3 11:02:11 Date Recorded Body height Body mass index (BMI) Body weight Systolic blood pressure Diastolic blood pressure Provider Name and Address Organization Details Last Updated DateTime 04/26/2024 172.72 cm 27.4 kg/m2 13813.63 g 116 mm[Hg] 79 mm[Hg] Eloina Rivera [facility] 4 10:50:04 Social History Question Answer Notes LastModified by Organizat ion Details LastModified Time Tobacco Smoking Status Never Smoker Kat Felix [facility] 02/27/2021 09:10:28 What Is Your Level Of Alcohol Consumption? None Information not available 02/27/2021 Are You Blind Or Do You Have Difficulty Seeing? No Information n ot available 03/22/2022 In The 14 Days Before Symptom Onset, Have You Had Close Contact With A Laboratory-confirm ed COVID-19 While That Case Was Ill? No Information n ot available 04/26/2024 In The 14 Days Before Symptom Onset, Have You Had Close Contact With A Person Who Is Under Investigation For COVID-19 While That Person Was Ill? No Information not available 04/26/2024 Have You Been To An Area Known To Be High Risk For COVID-19? No Information not available 04/26/2024 Are You Deaf Or Do You Have Serious Difficulty Hearing? No Information not available 03/22/2022 What Type Of Diet Are You Following? REGULAR Information n ot available 03/22/2022 Do You Use Any Illicit Or Recreational Drugs? No Information not available 02/27/2021 Has Tobacco Cessation Counseling Been Provided? No Information not available 02/27/2021 Do You Or Have You Ever Used Any Other Forms Of Tobacco Or Nicotine? No Information not available 02/27/2021 Sex: Unknown Functional Status Question Answer Note LastModified by Organizat ion Details LastModified Time Do you have difficulty walking or climbing stairs? No Information not available 03/22/2022 Are you able to walk? YESWOREST Information not available 03/22/2022 Are you able to care for yourself? Yes Information not available 03/22/2022 Do you have difficulty dressing or bathing? No Information not available 03/22/2022 What is your exercise level? Occasional Information not available 03/22/2022 Mental Status None recorded. Family History Nothing Reported Notes:Father: High cholester ol, Hypertension Maternal aunt: Cancer, breast Paternal grandfather: Hypertension, High cholesterol Medical History Condition Response Allergies (Food, seasonal, environmental ) N Other N Breast Cancer N Drug/Latex Allergies/Reactions N Blood Transfusion N Dermatologic Disorders N Lung Disease N Defects or Inherited Disease N Breast Problem N Gestational Diabetes N Hematologic disorders N Anesthesia Complications N History of STI N Deep Vein Thrombosis N Polycystic ovary syndrome N Anxiety Disorder N Autoimmune disease N Arthritis N Infertility N Polyps N Acid Reflux (GERD) N History of abnormal pap N Cancer N Stroke N Varicosities N Neurologic/Epilepsy N Endometriosis N High Cholesterol N Headaches N Fibromyalgia N Kidney Disease N Heart Problems N Kidney or Bladder Problems N Thyroid Problems N GI Problems N Eating Disorder N Anemia N Art (IVF or FET) N Psychiatric Illness N Ovarian Cancer N Diabetes Y Pulmonary (TB, Asthma) N Hepatitis/Liver Disease N No Past Medical History N Eczema N Urinary Tract Infection N Abuse/Domestic Violence N Asthma N Trauma/Violence N Depression/ depression N Heart Disease N Pre-Eclampsia N Hypertension N Osteoporosis N Thrombophilias N Gynecological History Statement/Question Response Flow Light Date of Last Mammogram 07/13/2023 Was last menstrual period normal Y STIs/STDs N HPV Vaccine N Colposcopy 11/21/2018 Duration of Flow (days) 3 Current Control Method Menopause Age at First Child 35 If Post Menopausal, Age at Menopause 47 Sexually Active? Y Menses Monthly N Age of first menstrual cycle 10 Date of Last Pap Smear 03/24/2023 Sexual Problems? Y LMP Approximate N Obstetrics History GPAL:G 2 P 2 0 0 2 Type Value Full Term 2 Living 2 Total 2 Past Encounters Encounter ID Performer Location Encounter Start Date Encounter Closed Date Diagnosis/Indication Diagnosis SNOMED-CT Code Diagnosis ICD10 Code Diagnosis Note [id number] Pam Duran MD [place] [address] [address] 02/27/2021 10:08:04 02/27/2021 14:05:14 Gynecologic examination 58117299 Z01.419 Past pregn chriss history of gestational diabetes mellitus 895862219 Z86.32 Thyroid di sorder screening 232866711 Z13.29 [id number] BRANDON Castillo [place] [place] [address] [address] 03/22/2022 15:21:50 03/22/2022 16:09:59 Screening for malignant neoplasm of breast 223655854 Z12.39 Gynecologi c examination 72222179 Z01.419 Suggested Calcium with Vitamin D 1200-1500m g daily. Patient advised to get an annual flu shot in the fall and she could obtain at [facility] or [facility] care clinic. Also to obtain TDap vaccinatio n if you have not had one in the last 10 years. Recommend yearly mammograms . Encouraged monthly self breast exams. Encourage safe sexual practices, to use condoms and limit partners if not already in a monogamous relationsh ip. Engage in daily exercise of low impact aerobic exercise 45-60 minutes 4-5 times weekly. Avoid tobacco and illicit drugs as well as using moderation with alcohol intake less than 1-2 8 oz beverages daily. This lifestyle behavior pattern will lead to less health conditions and longer life span. If BMI greater than 25 weight watchers or dietary consult advised. All questions have been answered. Patient appears to understand informatio n, but if you have any questions please call or respond to this email. WWEBC - not practicedS tarting to skip some months, likely perimenopa usal. She will continue to track periods.Di scussed even though perimenopa usal, could still occur if BC is not practicedH x of abnormal pap with colpo in 2019 - LGSILLast pap 02/27/2021 NILM HR HPV (-)Pap done todaySTI testing declinedMa mmogram order givenComarian malave UTDHx of maternal aunt with breast cancer in her 40's, mother with colon cancer. Genetic testing discussed, handout given to patient.UT D with PCP - following with PCP on elevated hemoglobin A1CRTC in 1 year or sooner if needed [id number] BRANDON Castillo [place] [address] [address] 03/24/2023 10:54:04 03/24/2023 11:52:41 Gynecologic examination 35717510 Z01.419 Suggested Calcium with Vitamin D 1200-1500m g daily. Patient advised to get an annual flu shot in the fall and she could obtain at [facility] or [facility] care clinic. Also to obtain TDap vaccinatio n if you have not had one in the last 10 years. Recommend yearly mammograms . Encouraged monthly self breast exams. Encourage safe sexual practices, to use condoms and limit partners if not already in a monogamous relationsh ip. Engage in daily exercise of low impact aerobic exercise 45-60 minutes 4-5 times weekly. Avoid tobacco and illicit drugs as well as using moderation with alcohol intake less than 1-2 8 oz beverages daily. This lifestyle behavior pattern will lead to less health conditions and longer life span. If BMI greater than 25 weight watchers or dietary consult advised. All questions have been answered. Patient appears to understand informatio n, but if you have any questions please call or respond to this email. Twin ch discussed the perimenopa usal transition in-depthen couraged to continue tracking cyclesBC declinedpa p updatedSTI testing declinedma mmogram order given, due 07/02UTD with colonoscop yUTD with PCP for routine labsRTC in 1 year or sooner if needed Screening for malignant neoplasm of breast [id number] Z12.39 [id number] Asa Peñaloza MD [place] [address] [address] 04/26/2024 10:15:17 04/26/2024 11:51:07 Gynecologic examination 21832666 Z01.419 Annual gynecologi rah exam performed. Patient will come back in a year unless there are new symptoms. Suggest Calcium with Vitamin D if not eating in diet. Patient advised to get annual flu shot. Recommend yearly physicals and preform monthly breast exams. Genetic testing is available for patients with family history of cancer. Engage in safe sexual practices, use condoms. Encouraged to have daily exercise. Avoid tobacco and illicit drugs, moderation of alcohol. If BMI greater than 25 dietary consult advised. If you have any questions please call or email. mammogram- done colon cancer screening - done Pap smear- today laboratory evaluation - today Menopausal symptom 16193 002 N95.1 Health Concerns Section Related Observation LastModified by Organization Detai ls LastModified Time None Recorded Concern Status LastModified by Organization Details LastModified Time None Recorded Advance Directives Directive None Recorded Payers Encounter Date Sequence Insurance Name Policy Number Policy Dietz Covered Member ID Dietz Member ID Guarantor Name 02/27/2021 1 [facility] Hugo Pernellkimber [id number] Raheem Deng 03/22/2022 1 [facility] Hugo Deng [id number] Raheem Deng 03/24/2023 1 [facility] Hugo Deng [id number] Raheem Deng 04/26/2024 2 [facility] [id number] Hugo Deng [id number] Raheem Deng 04/26/2024 1 [facility] Hugo Deng [id number] Raheem Deng Notes Date Note Type Note Provider Name and Address Organization Details Recorded Time 02/27/2021 text/html Patient is a 45y o who presents for an annual exam. Periods becoming irregular and skipping months. Declines BC. History GDM, no PCP. last pap-10/2018 LSIL, colpo but no follow up mammogram-2018 sexually active-y contraception-none seatbelts-y exercise-y depression-n domestic violence-denies tobacco-n concerns- Pam Duran MD [address], [place], [address], [facility] 02/27/2021 13:55:17 03/22/2022 text/html Annual GYNReport ed bypatient.Menstrua l cycle:Normal menses Urinary symptoms:No hematuria; No incontinence Vulva:No genital lesion Vagina:Normal vaginal discharge Breast:No breast pain; No breast lump; No nipple discharge Current Contraception:Kirsten h control not practiced Sexual complaints:No sexual complaints; No pain during intercourse; Normal libido Menopausal Symptoms:No menopausal symptoms; Normal vaginal lubrication Psychological symptoms:No depression; No anxiety; No PMDD Preventive measures:Encourage self breast examination; Encourage regular exercise; Encourage no tobacco use; Encourage regular mammograms starting age 40 BRANDON Castillo [address], [place], [address], [facility] 03/22/2022 16:07:23 03/24/2023 text/html Annual GYNReport ed bypatient.Menstrua l cycle:Perimenopaus al; LMP 11/30 Urinary symptoms:No hematuria; No incontinence Vulva:No genital lesion Vagina:Normal vaginal discharge Breast:No breast pain; No breast lump; No nipple discharge Current Contraception:Kirsten h control not practiced Sexual complaints:No sexual complaints; No pain during intercourse; Normal libido Menopausal Symptoms:No menopausal symptoms; Normal vaginal lubrication Psychological symptoms:No depression; No anxiety; No PMDD Preventive measures:Encourage self breast examination; Encourage regular exercise; Encourage no tobacco use; Encourage regular mammograms starting age 40; Mammogram performed within the past year; Up to date on colonoscopy screening BRANDON Castillo [address], [place], [address], [facility] 03/24/2023 11:50:17 04/26/2024 text/html Annual GYNReport ed bypatient.History: no gynecologic complaints Urinary symptoms:No hematuria Vulva:No genital lesion Vagina:Normal vaginal discharge Breast:No breast pain; No breast lump Sexual complaints:No sexual complaints;Pain during intercourse Menopausal Symptoms:Hot flashes;Inadequacy of lubrication of vaginal mucosa Psychological symptoms:No depression; No anxiety Preventive measures:Encourage self breast examination; Encourage regular exercise Asa Peñaloza MD [address], [place], [address], [facility] 04/26/2024 11:44:47 OBGyn Episode Ob Episode Information Episode Created Date Number of Fetuses Patient Bloodtype Patient rh Status Prepregnancy Weight lbs Domestic Partner Domestic Partner Phone Father Name Gravel Roofer Status 02/28/20 21 1 CLOSED Fetus Data First Name Last Name Admitted to NICU Weight (g) Sex Living Outcome Pediatric Complications Fetus ID Race Codes Race Delivery Type 3259.96 5704 M [id number] Vaginal Delivery Jeremy Calculation Initial Jeremy Date Initial Exam Date Initial Exam Provider Initial Ultrasound Date Last Menstrual Period Date Ultra Sound Weeks Gestation 0 Eighteen To Twenty Week Jeremy Update Ultra Sound Date Fundal Height At Umbil Quickening Date Ultra Sound Latest Weeks Gestation Final Jeremy Confirmed By Final Jeremy Confirmed Date Final Jeremy Date Ultra Sound Latest Days Gestation 0 0 Menstrual History Last Menstrual Date Menses Monthly On Bcp Conception Prior Menses Frequency Hcg Plus Date Menarche Onset Age Delivery Information Delivery Date Delivery Type Labor Anesthesia Weeks Gestation Incision Type Labor Labor Length Hrs Delivered By Post Complications Tubal Sterilization Discharge Date Comments 5 35.6 GDM Discharge Information Feeding Method Contraceptive Method Maternal HG B and HCT Levels Ob Episode Information Episode Created Date Number of Fetuses Patient Bloodtype Patient rh Status Prepregnancy Weight lbs Domestic Partner Domestic Partner Phone Father Name Gravel Roofer Status 02/28/20 21 1 CLOSED Fetus Data First Name Last Name Admitted to NICU Weight (g) Sex Living Outcome Pediatric Complications Fetus ID Race Codes Race Delivery Type 3628.73 6 M Full Term [id number] Vaginal Delivery Jeremy Calculation Initial Jeremy Date Initial Exam Date Initial Exam Provider Initial Ultrasound Date Last Menstrual Period Date Ultra Sound Weeks Gestation 0 Eighteen To Twenty Week Jeremy Update Ultra Sound Date Fundal Height At Umbil Quickening Date Ultra Sound Latest Weeks Gestation Final Jeremy Confirmed By Final Jeremy Confirmed Date Final Jeremy Date Ultra Sound Latest Days Gestation 0 0 Menstrual History Last Menstrual Date Menses Monthly On Bcp Conception Prior Menses Frequency Hcg Plus Date Menarche Onset Age Delivery Information Delivery Date Delivery Type Labor Anesthesia Weeks Gestation Incision Type Labor Labor Length Hrs Delivered By Post Complications Tubal Sterilization Discharge Date Comments 1 39 GDM Discharge Information Feeding Method Contraceptive Method Maternal HG B and HCT Levels
--- OUTSIDE RECORDS SUMMARY | 2024-08-30 09:34 | XMS_ITS | Clinical Summary ---
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 labor, primary c-sx 5/ breech 11/15/2010 Resolved Problems Problem Noted Date Diagnosed Date Resolved Date Microcalcification of left b reast on mammogram 02/15/2019 04/11/2019 Family History Medical History Relation Name Comments Hypertension Father Healthy Mother Relation Name Status Comments Father Alive Mother Alive Social History Tobacco Use Types Packs/Day Years Used Date Smoking Tobacco: Never Smokeless Tobacco: Never Alcohol Use Standard Drinks/Week Comments Yes 0 (1 standard drink = 0.6 oz pur e alcohol) Comments No Sex and Gender Information Value Date Recorded Sex Assigned at Not on file Legal Sex 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 Gender Identity Not on file Sexual Orientation Not on file Last Filed Vital Signs Vital Sign Reading Time Taken Comments Blood Pressure 138/82 04/11/2019 11:30 AM CDT Pulse 80 04/11/2019 11:30 AM CDT Temperature 36.7 C (98.1 F) 04/11/2019 11:30 AM CDT Respiratory Rate 18 11/19/2010 8:26 AM CDT Oxygen Saturation 98% 04/11/2019 11:30 AM CDT Inhaled Oxygen Concentration - - Weight 86 kg (189 lb 8 oz) 04/11/2019 11:30 AM C DT Height 172.7 cm (5' 8 ) 04/11/2019 11:30 AM CDT Body Mass Index 28.81 04/11/2019 11:30 AM CDT Plan of Treatment Health Maintenance Due Date Last Done Comments DTAP/TDAP/TD VACCINES (1 - Tdap) 1992 HEPATITIS B VACCINES (1 of 3 - 19+ 3-dose series) 1992 CERVICAL CANCER SCREENING 2003 COLORECTAL SCREENING 2018 Colorectal Cancer Screening 2018 FIT-DNA Q 3 years 2018 FIT/FOBT Q 1 year 2018 Flex Sig/CT Colonography Q 5 years 2018 BREAST CANCER SCREENING 01/09/2020 01/08/2019 ZOSTER VACCINE (1 of 2) 2023 INFLUENZA VACCINE (#1) 2024 PNEUMOCOCCAL VACCINE 0-64 YEARS Aged Out No longer eligible based on patient's age to complete this topic Procedures Procedure Name Priority Date/Time Associated Diagnosis Comments MAMMOGRAM REPORT Routine 01/08/2019 from Last 3 Months or Most Recently Relevant to Health Maintenance Results * MAMMOGRAM REPORT (01/08/2019) Anatomical Region Laterality Modality Other us Abstract Provider MAMMO ORDERABLES Final Result from Last 3 Months or Most Recently Relevant to Health Maintenance Insurance [facility] Advance Directives For more information, please contact: [phone] * Full Code (Latest Code Status on File) Date Activated Date Inactivated Comments 11/15/2010 10:05 PM 11/19/2010 2:38 PM * Full Code Date Activated Date Inactivated Comments 11/15/2010 6:20 PM 11/15/2010 10:05 PM Care Teams Honeycomb Blanket Maker Relationship Specialty Start Date End Date Stephanie Heath MD PCP - General Obstetrics and Gynecology 02/15/19
--- OUTSIDE RECORDS SUMMARY | 2024-08-30 09:34 | XMS_ITS | Clinical Summary ---
Author Organization [facility] Address [address] [place] [address] Care Team Providers Care Dross Skimmer Name Role Phone Unavailable Primary Care Provider Unavailabl e Source Comments [facility],non-owned Affiliates and Associated Physician Practices is amultiple site organization consisting of ambulatory clinics and hospital sitesin [place], [place], [place] and [place]. This disclosure is being madepursuant to the Care Everywhere program and may not contain all information available regarding this patient. Last updated 18.[facility] Active Problems Problem Noted Date Diagnosed Date Encounter for genetic counseling and testing Maternal age 39 09/03/2014 Social History Tobacco Use Types Packs/Day Years Used Date Smoking Tobacco: Never Assessed Sex and Gender Information Value Date Recorded Sex Assigned at Not on file Gender Identity Not on file Sexual Orientation Not on file Plan of Treatment Health Maintenance Due Date Last Done Comments COLOGUARD (AGES 45-75) - COL ON CA SCREENING 1973 COLON MONITORING 1973 COLONOSCOPY - COLON CA SCREENING 1973 CT COLONOGRAPHY - COLON CA SCREENING 1973 Colorectal Cancer Screening 1973 FIT - COLON CA SCREENING 1973 FLEX SIG - COLON CA SCREENING 1973 LIPID TESTING 1973 MAMMOGRAM 1973 PAP SMEAR 1973 HIV SCREENING 1988 HEPATITIS C SCREENING 05/10/1991 DTAP/TDAP/TD VACCINES (1 - Tdap) 1992 HEPATITIS B VACCINE (1 of 3 - 19+ 3-dose series) 1992 PNEUMOCOCCAL VACCINE 50+ (1 of 1 - PCV) 2023 ZOSTER VACCINE (1 of 2) 2023 COVID-19 VACCINE (1 - 2023-2 5 season) 2024 INFLUENZA VACCINE (#1) 2024 DEPRESSION SCREENING 07/11/2024 HIB VACCINE Aged Out No longer eligi ble based on patient's age to complete this topic HPV VACCINE Aged Out No longer eligi ble based on patient's age to complete this topic MENINGOCOCCAL (Group B) VACCINE Aged Out No longer eligible based on patient's age to complete this topic MENINGOCOCCAL VACCINE Aged Out No marian carl eligible based on patient's age to complete this topic PNEUMOCOCCAL VACCINE Aged Out No long er eligible based on patient's age to complete this topic
--- OUTSIDE RECORDS SUMMARY | 2024-08-30 09:34 | XMS_ITS | Referral Summary ---
Author Organization [facility] Address [address] [place] [address] Care Team Providers Care Outside Sales Executive Name Role Phone Unavailable Primary Care Provider Unavailabl e Source Comments [facility],non-owned Affiliates and Associated Physician Practices is amultiple site organization consisting of ambulatory clinics and hospital sitesin [place], [place], [place] and [place]. This disclosure is being madepursuant to the Care Everywhere program and may not contain all information available regarding this patient. Last updated 18.[facility] [employer] Active Problems Problem Noted Date Diagnosed Date Encounter for genetic counseling and testing Maternal age 39 09/03/2014 Social History Tobacco Use Types Packs/Day Years Used Date Smoking Tobacco: Never Assessed Sex and Gender Information Value Date Recorded Sex Assigned at Not on file Gender Identity Not on file Sexual Orientation Not on file Plan of Treatment Not on file
--- OUTSIDE RECORDS SUMMARY | 2024-08-30 09:34 | XMS_ITS | Clinical Summary ---
Author Organization [facility] Address [address] [place] [id number] Care Team Providers Care Asset Protection Manager Name Role Phone Elieser Claire MD Primary Care Provider +1- [phone] Allergies No known active allergies Medications amLODIPine (NORVASC) 5 mg tablet Take 1 tablet (5 mg total) by mouth daily 10/15/19 23 Active metFORMIN XR (GLUCOPHAGE XR) 500 mg 24 hr tablet Take 1 tablet (500 mg total) by mouth daily 10/15/19 23 Active progesterone 50 mg/mL injection progesterone 50 mg/mL intramuscular oil Active methylPREDNISol one (MEDROL) 8 mg tablet methylprednisolone 8 mg tablet Active hydroCHLOROthia zide (MICROZIDE) 12.5 mg capsule Take 1 capsule (12.5 mg total) by mouth daily Active leuprolide (LUPRON) 1 mg/0.2 mL injection leuprolide 1 mg/0.2 mL subcutaneous kit Activ e azithromycin (ZITHROMAX) 500 mg tablet azithromycin 500 mg tablet Active chorionic gonadotropin (PREGNYL) 10,000 unit injection chorionic gonadotropin, human 10,000 unit IM powder for solution Active menotropins (Menopur) 75 unit recon soln Menopur 75 unit subcutaneous solution Act rosales penicillin v potassium (VEETID) 500 mg tablet penicillin V potassium 500 mg tablet Active follitropin beta (Follistim AQ) 900 unit/1.08 mL cartridge Follistim AQ 900 unit/1.08 mL subcutaneous cartridge Active losartan-hydroC HLOROthiazide (HYZAAR) 100-12.5 mg per tablet Take 1 tablet by mouth daily 11/06/19 23 Active 114-iron a-g-folate 1 (Prenate Elite, iron asp glyc,) 20 mg iron- 1 mg tablet Prenate Elite (iron asparto glycinate) 20 mg iron-1 mg tablet Activ e Active Problems Problem Noted Date Diagnosed Date Family history of coronary arteriosclerosis 11/09 Female infertility 06/11/2014 Encounters Date Type Department Care Team Description 08/08/2024 Orders Only [facility] Surgery [address] [place] [address] Stacey Jacobson NP Abnormal mammogram (Primary Dx) from Last 3 Months Surgical History Surgery Date Site/Laterality Comments SECTION Medical History Medical History Date Comments Family history of ischemic h eart disease and other diseases of the circulatory system Gestational diabetes Hypertension Headache Family History Medical History Relation Name Comments Hypertension Father Pulmonary embolism Father Stroke Father tumor of colon Mother Relation Name Status Comments Father Alive Mother Social History Tobacco Use Types Packs/Day Years Used Date Smoking Tobacco: Never Tobacco Cessation:Counseling Given: Not Answered Personal Safety Answer Date Recorded Getting School Help Needed Not on file 09/05 Comments Unknown Sex and Gender Information Value Date Recorded Sex Assigned at Not on file 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 Gender Identity Not on file Sexual Orientation Not on file Obstetrics History Last Filed Vital Signs Vital Sign Reading Time Taken Comments Blood Pressure 118/82 12/01/2022 11:02 AM CDT Pulse 77 12/01/2022 11:02 AM CDT Temperature - - Respiratory Rate - - Oxygen Saturation 97% 12/01/2022 11:02 AM CDT Inhaled Oxygen Concentration - - Weight 90.9 kg (200 lb 6.4 oz) 12/01/2022 11:02 AM CDT Height 172.7 cm (5' 8 ) 12/01/2022 11:02 AM CDT Body Mass Index 30.47 12/01/2022 11:02 AM CDT Plan of Treatment Health Maintenance Due Date Last Done Comments Breast Cancer Screening-Mammogram 1973 Cervical Cancer Screening 1973 Colon Cancer Screening-Colonoscopy 1973 Depression Screening 1973 Hepatitis C Screening 1973 Pneumococcal vaccine <65 (1 of 2 - PCV) 1979 DTaP/Tdap/Td Vaccine (1 - Tdap) 1984 Hepatitis B Screening 1991 Regular Well Visit/Exam 18-64 1991 Zoster Vaccine (1 of 2) 1992 Covid-19 Vaccine (3 - Pfizer risk series) 12/28/2020 11/30/2020, 11/09/2020 Influenza Vaccine (#1) 2024 05/21/2019, 2012 Care Teams Asset Protection Manager Relationship Specialty Start Date End Date Elieser Claire MD [facility] [place] [address] PCP - General Family Medicine 11/03/22
--- OUTSIDE RECORDS SUMMARY | 2024-08-30 09:34 | XMS_ITS | Referral Summary ---
Author Organization [facility] Address [address] [place] [phone] Care Team Providers Care Putty Mixer Name Role Phone Elieser Claire MD Primary Care Provider +1- [phone] Encounters Date Type Department Care Team Description 08/08/2024 Orders Only [facility] Surgery [address] [place] [address] Stacey Jacobson NP Abnormal mammogram (Primary Dx) from Last 3 Months Allergies No known active allergies Medications amLODIPine [...] of coronary arteriosclerosis 11/09 Female infertility 06/11/2014 Social History Tobacco Use Types Packs/Day Years Used Date Smoking Tobacco: Never Tobacco Cessation:Counseling Given: Not Answered Personal Safety Answer Date Recorded Getting School Help Needed Not on file 09/05 Comments Unknown Sex and Gender Information Value Date Recorded Sex Assigned at Not on file 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
== END 2024-08-30 09:27 | disposition home or self-care (01) ==
PROVIDERS: PCP Physician Assistant
DX: R92.0 Mammographic microcalcification found on diagnostic imaging of breast (principal); N60.12 Diffuse cystic mastopathy of left breast
CPT/HCPCS: 19081; 77065; 88305

== ENCOUNTER 2024-10-23 00:55 | Day surgery (SDC) | payer OTHER, SELFPAY ==
--- NOTE | 2024-09-10 15:06 | SUR.PREOP ---
Patient had called this morning with complaints of a cold that started yesterday. Patient requested to cancel procedure for 09/11/24. She was given the number for the GI office to get rescheduled when she is feeling better.
[2024-10-15 11:04] VITALS: BMI 27.3
--- OUTSIDE RECORDS SUMMARY | 2024-10-23 00:58 | XMS_ITS | Referral Summary ---
Author Organization [facility] Address [address] [place] [id number] Care Team Providers Care Business Process Analyst Name Role Phone Elieser Claire MD Primary Care Provider +1- [phone] Encounters Date Type Department Care Team Description 08/08/2024 Orders Only 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
--- OUTSIDE RECORDS SUMMARY | 2024-10-23 00:58 | XMS_ITS | Clinical Summary ---
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
--- OUTSIDE RECORDS SUMMARY | 2024-10-23 00:58 | XMS_ITS | Data Portability ---
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 (Lab), [address], [place], [address], 10/18/202 4 10:44:02 CMP, serum or plasma [address] [facility] (Lab), [address], [place], [address], 4 10:44:03 lipid panel, blood [address] [facility] (Lab), [address], [place], [address], 4 10:44:03 TSH, serum or plasma [address] [facility] (Lab), [address], [place], [address], 4 10:44:04 25-hydroxyv itamin D2 + 25-hydroxyv itamin D3, QN, serum or plasma [address] [facility] (Lab), [address], [place], [address], 4 10:44:04 TSH, serum or plasma [address] [facility] (Lab), [address], [place], [address], 1 04:44:58 HbA1c (hemoglobin A1c), blood [address] [facility] (Lab), [address], [place], [address], 1 04:44:59 Referral None recorded. Procedures None recorded. Surgeries None recorded. Imaging MAMMO, screening, digital, bilateral 2022 023 [facility], [address], [place], [address], 4 07:52:49 MAMMO, screening, bilateral 2021 022 [facility], [address], [place], [address], 2 12:28:40 Medication Orders estradiol 1 mg tablet 2023 [id number], [address], [place], [place], [id number], 4 11:44:12 progesteron e micronized 100 mg capsule 2023 [facility] #[id number], [address], [place], [place], [id number], 4 11:44:12 Patient TargetsNo targets recorded. Patient InstructionsNo instructions recorded. Reason for Referral None Reported. Results Created Date Observation Date Name Description Value Unit Range Abnormal Flag Note LastModifiedBy Organization Detail LastModifiedTime 02/28/2002/27/2021 TSH, REFLE X FREE T4 TSH 2.74 uIU/m L 0.30-5 .33 Not Available [facility] (Lab) [address], [place], [address], 02/28/2021 04:44:58 02/28/2002/27/2021 HEMOG LOBIN A1C hemoglobin [...] >8.0% Actio n mimi stesergei Not Available [facility] (Lab) [address], [place], [address], 02/28/2021 04:44:58 02/28/2002/27/2021 IMAGE GUIDE D PAP [...] katie: 02/28 0050 First Scree n: Leo Bryd , CT Speci men: Magda bobby Pap [...] as clini mariana lockwood nted. Not Available [facility] (Lab) [address], [place], [address], 03/02/2021 18:37:35 03/22/20 22 03/22/2022 IMAGE GUIDE [...] s and less commo nly, endom etria l/nancy rine abnor malit ies. Clini rah corre neli n is recom moe d. Not Available [facility] [address], [place], [address], 03/29/2022 12:11:50 03/24/20 23 03/24/2023 IMAGE GUIDE [...] as clini mariana lockwood nted. Not Available [facility] (Lab) [address], [place], [address], 03/27/2023 20:56:20 04/26/20 24 04/26/2024 CBC W/DIF F WBC 5.9 10'3/ uL 3.5-10 .5 Not Available [facility] (Lab) [address], [place], [address], 04/27/2024 10:44:02 04/26/20 24 04/26/2024 CBC W/DIF F RBC 4.85 10'6/ uL (based on docume nted legal sex) 3.80-5 .20 Not Available [facility] (Lab) [address], [place], [address], 04/27/2024 10:44:02 04/26/20 24 04/26/2024 CBC W/DIF F HGB 13.8 g/dL (based on docume nted legal sex) 11.6-1 5.4 Not Available [facility] (Lab) [address], [place], [address], 04/27/2024 10:44:02 04/26/20 24 04/26/2024 CBC W/DIF F HCT 44.5 % (based on docume nted legal sex) 34.0-4 5.0 Not Available [facility] (Lab) [address], [place], [address], 04/27/2024 10:44:02 04/26/20 24 04/26/2024 CBC W/DIF F MCV 91.8 fL 80.0-9 9.0 Not Available [facility] (Lab) [address], [place], [address], 04/27/2024 10:44:02 04/26/20 24 04/26/2024 CBC W/DIF F MCH 28.5 pg 27.0-3 4.0 Not Available [facility] (Lab) [address], [place], [address], 04/27/2024 10:44:02 04/26/20 24 04/26/2024 CBC W/DIF F MCHC 31.0 g/dL 32.0-3 5.5 low Not Available [facility] (Lab) [address], [place], [address], 04/27/2024 10:44:02 04/26/20 24 04/26/2024 CBC W/DIF F RDW 12.8 % 11.0-1 5.0 Not Available [facility] (Lab) [address], [place], [address], 04/27/2024 10:44:02 04/26/20 24 04/26/2024 CBC W/DIF F plt 301 10'3/ uL 150-40 0 Not Available [facility] (Lab) [address], [place], [address], 04/27/2024 10:44:02 04/26/20 24 04/26/2024 CBC W/DIF F MPV 10.4 fL 8.8-12 .1 Not Available [facility] (Lab) [address], [place], [address], 04/27/2024 10:44:02 04/26/20 24 04/26/2024 CBC W/DIF F NRBC's 0.0 % 0.0 Not Available [facility] (Lab) [address], [place], [address], 04/27/2024 10:44:02 04/26/20 24 04/26/2024 CBC W/DIF F absolute NRBCs 0.0 10'3/ uL no refere nce range establ ished Not Available [facility] (Lab) [address], [place], [address], 04/27/2024 10:44:02 04/26/20 24 04/26/2024 CBC W/DIF F neutrophils 59.1 % 34.0-7 3.0 Not Available [facility] (Lab) [address], [place], [address], 04/27/2024 10:44:02 04/26/20 24 04/26/2024 CBC W/DIF F lymphocytes 31.1 % 15.0-5 0.0 Not Available [facility] (Lab) [address], [place], [address], 04/27/2024 10:44:02 04/26/20 24 04/26/2024 CBC W/DIF F monocytes 5.1 % 1.0-15 .0 Not Available [facility] (Lab) [address], [place], [address], 04/27/2024 10:44:02 04/26/20 24 04/26/2024 CBC W/DIF F eosinophils 3.6 % 0.0-8. 0 Not Available [facility] (Lab) [address], [place], [address], 04/27/2024 10:44:02 04/26/20 24 04/26/2024 CBC W/DIF F basophils 0.9 % 0.0-2. 0 Not Available [facility] (Lab) [address], [place], [address], 04/27/2024 10:44:02 04/26/20 24 04/26/2024 CBC W/DIF F immature granulocytes 0.2 % no define d refere nce range Not Available [facility] (Lab) [address], [place], [address], 04/27/2024 10:44:02 04/26/20 24 04/26/2024 CBC W/DIF F absolute neutrophils 3.5 10'3/ uL 1.5-8. 0 Not Available [facility] (Lab) [address], [place], [address], 04/27/2024 10:44:02 04/26/20 24 04/26/2024 CBC W/DIF F absolute lymphocytes 1.8 10'3/ uL 1.0-4. 0 Not Available [facility] (Lab) [address], [place], [address], 04/27/2024 10:44:02 04/26/20 24 04/26/2024 CBC W/DIF F absolute monocytes 0.3 10'3/ uL 0.2-1. 0 Not Available [facility] (Lab) [address], [place], [address], 04/27/2024 10:44:02 04/26/20 24 04/26/2024 CBC W/DIF F absolute eosinophils 0.2 10'3/ uL 0.0-0. 6 Not Available [facility] (Lab) [address], [place], [address], 04/27/2024 10:44:02 04/26/20 24 04/26/2024 CBC W/DIF F absolute basophils 0.1 10'3/ uL 0.0-0. 3 Not Available [facility] (Lab) [address], [place], [address], 04/27/2024 10:44:02 04/26/20 24 04/26/2024 CBC W/DIF [...] resul ts are expec emilie. Not Available [facility] (Lab) [address], [place], [address], 04/27/2024 10:44:02 04/26/20 24 04/26/2024 LIPID PANEL ,AMA (LDL- CALC) total cholesterol 251 mg/dL 0-199 high Not Available [facility] (Lab) [address] [place], [address], 04/27/2024 10:44:03 04/26/20 24 04/26/2024 LIPID PANEL ,AMA (LDL- CALC) triglyceride s 107 mg/dL 0-150 NCEP Refer ence Value s for Trigl yceri santiago: Jacquie l: <150 mg/dL Borde rline High: 150 - 199 mg/dL High: 200 - 499 mg/dL Very High: >/= 500 mg/dL Not Available [facility] (Lab) [address] [place], [address], 04/27/2024 10:44:03 04/26/20 24 04/26/2024 LIPID PANEL ,AMA (LDL- CALC) HDL cholesterol 65 mg/dL >40 Not Available [facility] (Lab) [address] [place], [address], 04/27/2024 10:44:03 04/26/20 24 04/26/2024 LIPID PANEL [...] mg/dL , HDL <40 mg/dL Not Available [facility] (Lab) [address], [place], [address], 04/27/2024 10:44:03 04/26/20 24 04/26/2024 LIPID PANEL ,AMA (LDL- CALC) non-HDL cholesterol 186 mg/dL no refere nce range A reaso nable goal for non-H DL antoinette stero l is one that is 30 mg/dL highe r than the LDL antoinette stero l goal. Not Available [facility] (Lab) [address], [place], [address], 04/27/2024 10:44:03 04/26/20 24 04/26/2024 LIPID PANEL ,AMA (LDL- CALC) chol/HDL ratio 3.9 . 0.0-5. 0 On November 02, 2022, [facility] labor atori es goss ed the equat [...] Ramses marr, Andrew Car, Andrew thompson, [facility] , and Eric Garcia . 2013. Comp [...] J, Brayan faye A, Barry M, Sathish joshi R, Oli faye E, Justin crain RS, Jose SR, Yasmeen n SS. Fast ing Versu s Nonfa sting and Low-D ensit y Lipop rotei n Antoinette stero l Accur acy. Circu latio n. 2017Jul 12;137 (1):1 0-19. Not Available [facility] (Lab) [address], [place], [address], 04/27/2024 10:44:03 04/26/20 24 04/26/2024 CMP(C OMPRE HENSI VE METAB OLIC PANEL ) sodium 142 mmol/ L 133-14 6 Not Available [facility] (Lab) [address] [place], [address], 04/27/2024 10:44:03 04/26/20 24 04/26/2024 CMP(C OMPRE HENSI VE METAB OLIC PANEL ) potassium 4.0 mmol/ L 3.5-5. 1 Not Available [facility] (Lab) [address] [place], [address], 04/27/2024 10:44:03 04/26/20 24 04/26/2024 CMP(C OMPRE HENSI VE METAB OLIC PANEL ) chloride 103 mmol/ L 98-107 Not Available [facility] (Lab) [address] [place], [address], 04/27/2024 10:44:03 04/26/20 24 04/26/2024 CMP(C OMPRE HENSI VE METAB OLIC PANEL ) carbon dioxide 30 mmol/ L 21-31 Not Available [facility] (Lab) [address] [place], [address], 04/27/2024 10:44:03 04/26/20 24 04/26/2024 CMP(C OMPRE HENSI VE METAB OLIC PANEL ) anion gap 9 mmol/ L 4-13 Not Available [facility] (Lab) [address], [place], [address], 04/27/2024 10:44:03 04/26/20 24 04/26/2024 CMP(C OMPRE HENSI VE METAB OLIC PANEL ) blood urea nitrogen 17 mg/dL 7-25 Not Available [facility] (Lab) [address], [place], [address], 04/27/2024 10:44:03 04/26/20 24 04/26/2024 CMP(C OMPRE HENSI VE METAB OLIC PANEL ) creatinine 0.86 mg/dL 0.60-1 .30 Not Available [facility] (Lab) [address], [place], [address], 04/27/2024 10:44:03 04/26/20 24 04/26/2024 CMP(C OMPRE HENSI VE METAB OLIC PANEL ) egfrcr (CKD-epi 2020) 82 mL/mi n/1.7 3_m2 >=60 Not Available [facility] (Lab) [address], [place], [address], 04/27/2024 10:44:03 04/26/20 24 04/26/2024 CMP(C OMPRE HENSI VE METAB OLIC PANEL ) calcium 9.7 mg/dL 8.3-10 .5 Not Available [facility] (Lab) [address], [place], [address], 04/27/2024 10:44:03 04/26/20 24 04/26/2024 CMP(C OMPRE HENSI VE METAB OLIC PANEL ) glucose 112 mg/dL 70-100 high Not Available [facility] (Lab) [address], [place], [address], 04/27/2024 10:44:03 04/26/20 24 04/26/2024 CMP(C OMPRE HENSI VE METAB OLIC PANEL ) protein, total 7.4 g/dL 6.4-8. 3 Not Available [facility] (Lab) [address], [place], [address], 04/27/2024 10:44:03 04/26/20 24 04/26/2024 CMP(C OMPRE HENSI VE METAB OLIC PANEL ) albumin 4.4 g/dL 3.5-5. 0 Not Available [facility] (Lab) [address], [place], [address], 04/27/2024 10:44:03 04/26/20 24 04/26/2024 CMP(C OMPRE HENSI VE METAB OLIC PANEL ) ALT 12 units /L 9-43 Not Available [facility] (Lab) [address], [place], [address], 04/27/2024 10:44:03 04/26/20 24 04/26/2024 CMP(C OMPRE HENSI VE METAB OLIC PANEL ) alkaline phosphatase 71 units /L 34-104 Not Available [facility] (Lab) [address], [place], [address], 04/27/2024 10:44:03 04/26/20 24 04/26/2024 CMP(C OMPRE HENSI VE METAB OLIC PANEL ) AST 12 units /L 13-39 low Not Available [facility] (Lab) [address], [place], [address], 04/27/2024 10:44:03 04/26/20 24 04/26/2024 CMP(C OMPRE HENSI VE METAB OLIC PANEL ) bilirubin, total 0.4 mg/dL 0.2-1. 2 Not Available [facility] (Lab) [address], [place], [address], 04/27/2024 10:44:03 04/26/20 24 04/26/2024 TSH, REFLE X FREE T4 TSH 1.93 uIU/m L 0.30-5 .33 Not Available [facility] (Lab) [address], [place], [address], 04/27/2024 10:44:04 04/26/20 24 04/26/2024 VITAM IN D, 25-OH (TOTA L D2/D3 ) vitamin D, 25-hydroxy, total 55.2 NG/mL 30.0-1 00.0 Sugge stive of Defic iency : <20 ng/mL Sugge stive of Insuf ficie ncy: 20-29 ng/mL Sugge stive of Suffi cienc y: 30-10 0 ng/mL Sugge stive of Toxic ity: >150 ng/mL Not Available [facility] (Lab) [address], [place], [address], 04/27/2024 10:44:04 03/19/20 21 03/19/2021 MAMMO , scree kanu, bilat eral No observ ation record ed. [facility] [address], [place], [address], 03/29/2021 18:30:18 07/01/20 22 07/01/2022 MAMMO , scree kanu, bilat eral No observ ation record ed. [facility] [address], [place], [address], 03/31/2023 11:45:42 07/14/19 24 07/13/2023 MAMMO , scree kanu, digit al, bilat eral No observ ation record ed. [facility] [address], [place], [address], 07/15/2023 16:27:58 07/23/19 25 07/20/2024 MAMMO , scree kanu, bilat eral No observ ation record ed. [facility] [address], [place], [address], 07/24/2024 15:31:00 08/06/19 25 08/06/2024 MAMMO , diagn ostic , unila teral No observ ation record ed. [email or web address] [facility] [address], [place], [address], 08/13/2024 19:12:33 08/07/19 25 08/06/2024 MAMMO , diagn ostic , unila teral No observ ation record ed. 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 03/09/2021 15:56:50 Problems Name Problem SNOMED Code Status Onset Date Resolution Date Notes Provider Name and Address Organization Details Recorded Time Low grade squamous intraepi thelial lesion on cervical Papanico laou smear 4437763696 9105 Active 2018 Pam Duran MD [address], [place], [address], [facility] 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 [address] 10:22:[address] Concept Completed 201802/27/2021 Encntr for general adult medical exam w/o abnormal findings ;Recorde d Elsewher e: No Locat ion: [facility] S ource: [employer] cedric: N Guy ce ID: [id number] Paul lable Time: 11:00:00 AM Pam Duran MD [address], [place], [address], [facility] 1 10:22:54 Human papillom avirus deoxyrib onucleic acid detected , high risk on cervical specimen [id number] Completed 201802/27/2021 Cervical high risk HPV DNA test positive ;Recorde d Elsewher e: No Locat ion: [facility] S ource: [employer] cedric: N Guy ce ID: [id number] Paul lable Time: 01:30:00 PM Pam Duran MD [address], [place], [address], [facility] 1 10:22:43 Pregnanc y test negative [id number] Completed 201802/27/2021 Encounte r for pregnanc y test, result negative ;Recorde d Elsewher e: No Locat ion: [facility] S ource: [employer] cedric: Jonatan Tovar ce ID: [id number] Paul lable Time: 01:30:00 PM Pam Duran MD [address], [place], [address], [facility] 1 10:22:51 Low grade squamous intraepi thelial lesion on cervical Papanico laou smear [id number] 9105 Completed 201802/27/2021 Low grade intrepit h lesion cyto smr crvx (LGSIL); Recorded Elsewher e: No Locat ion: [facility] S ource: [employer] cedric: Jonatan Tovar ce ID: [id number] Paul lable Time: 01:30:00 PM Pam Duran MD [address], [place], [address], [facility] 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 1 10:22:55 Problem Notes None recorded. Procedures Surgical History Date Name Laterality Status Provider Name and Address Organization Details Recorded Time 4 Date of Last Mammogram completed [facility] 04/26/2024 10:51:40 3 Date of Last Pap Smear completed [facility] 04/26/2024 10:51:07 [address] [facility] 02/27/2021 09:16:55 [address] [facility] 02/27/2021 09:18:[address] [facility] 02/27/2021 09:09:53 0 excision of uterine polyp completed [facility] 02/27/2021 09:10:07 Imaging Results Imaging Date Name Status LastModified by Organiz ation Details LastModified Time 03/19/2021 MAMMO, screening, bilateral completed [facility] [address], [place], [address], 03/29/2021 18:30:18 07/01/2022 MAMMO, screening, bilateral completed [facility] [address], [place], [address], 03/31/2023 11:45:42 07/13/2023 MAMMO, screening, digital, bilateral completed [facility] [address], [place], [address], 07/15/2023 16:27:58 07/20/2024 MAMMO, screening, bilateral completed [facility] [address], [place], [address], 07/24/2024 15:31:00 08/06/2024 MAMMO, diagnostic, unilateral completed [facility] [address], [place], [address], 08/13/2024 19:12:33 08/06/2024 MAMMO, diagnostic, unilateral completed [email or web address] [facility] [address], [place], [address], 08/13/2024 19:13:06 Procedure Notes None recorded. Medical Equipment None Reported. Allergies No known drug allergies Medications Name Sig Start Date Stop Date Status Note LastModified by Organization Details LastModified Time multivita min tablet 02/27 completed Prescrib ed Elsewher e: Yes Loca tion: [facility] M odify By: [email or web address] Encount er DateTime : 11/08/19 11:00:00 AM [...] Updated DateTime 02/27/2021 172.72 cm 30.1 kg/m2 35762.29 g 127 mm[Hg] 87 mm[Hg] [facility] 1 10:18:36 Date Recorded Body height Body mass index (BMI) Body weight Systolic blood pressure Diastolic blood pressure Provider Name and Address Organization Details Last Updated DateTime 03/22/2022 172.72 cm 31 kg/m2 83318.56 g 112 mm[Hg] 76 mm[Hg] [facility] 2 15:30:07 Date Recorded Body height Body mass index (BMI) Body weight Systolic blood pressure Diastolic blood pressure Provider Name and Address Organization Details Last Updated DateTime 03/24/2023 172.72 cm 31.2 kg/m2 54864.44 g 125 mm[Hg] 83 mm[Hg] [facility] 11:02:11 Date Recorded Body height Body mass index (BMI) Body weight Systolic blood pressure Diastolic blood pressure Provider Name and Address Organization Details Last Updated DateTime 04/26/2024 172.72 cm 27.4 kg/m2 41713.63 g 116 mm[Hg] 79 mm[Hg] Eloina Rivera [facility] 4 10:50:04 Social History Question Answer Notes LastModified by Organizat ion Details LastModified Time Tobacco Smoking Status Never Smoker Kat Felix [facility] 02/27/2021 09:10:28 What Is Your [...] (Food, seasonal, environmental ) N Other N Drug/Latex Allergies/Reactions N Blood Transfusion N Breast Cancer N Dermatologic Disorders N Lung Disease N Defects or Inherited Disease N Breast Problem N Gestational Diabetes N Hematologic disorders N Anesthesia Complications N History of STI N Deep Vein Thrombosis N Polycystic ovary syndrome N Anxiety Disorder N Autoimmune disease N Arthritis N Polyps N Infertility N Acid Reflux (GERD) N History of abnormal pap N Cancer N Varicosities N Stroke N Neurologic/Epilepsy N Endometriosis N High Cholesterol N Fibromyalgia N Headaches N Kidney Disease N Heart Problems N Thyroid Problems N Kidney or Bladder Problems N GI Problems N Eating Disorder [...] SNOMED-CT Code Diagnosis ICD10 Code Diagnosis Note [id number] Pam Duran MD [facility] [address] [address] 02/27/2021 10:08:04 02/27/2021 14:05:14 Gynecologic examination [id number] Z01.419 Past pregn chriss history of gestational diabetes mellitus 021425245 Z86.32 Thyroid di sorder screening 868573460 Z13.29 [id number] BRANDON Castillo [facility] [address] [address] 03/22/2022 15:21:50 03/22/2022 16:09:59 Screening for malignant neoplasm of breast 317722995 Z12.39 Gynecologi c examination 06982505 Z01.419 Suggested Calcium with Vitamin D 1200-1500m g daily. Patient advised to get an annual flu shot in the fall and she could obtain at [facility] or [facility] care clinic. Also to obtain TDap vaccinatio [...] in 1 year or sooner if needed [id number] BRANDON Castillo [facility] [address] [address] 03/24/2023 10:54:04 03/24/2023 11:52:41 Gynecologic examination 78690104 Z01.419 Suggested Calcium with Vitamin D 1200-1500m g daily. Patient advised to get an annual flu shot in the fall and she could obtain at [facility] or [facility] care clinic. Also to obtain TDap vaccinatio [...] needed Screening for malignant neoplasm of breast 288598095 Z12.39 [id number] Asa Peñaloza MD [facility] [address] [address] 04/26/2024 10:15:17 04/26/2024 11:51:07 Gynecologic examination 40865106 Z01.419 Annual gynecologi rah exam performed. Patient [...] today laboratory evaluation - today Menopausal symptom 50650 002 N95.1 Health Concerns Section Related Observation LastModified by Organization Detai ls LastModified Time None Recorded Concern Status LastModified by Organization Details LastModified Time None Recorded Advance Directives Directive None Recorded Payers Encounter Date Sequence Insurance Name Policy Number Policy Dietz Covered Member ID Dietz Member ID Guarantor Name 02/27/2021 1 [facility] Hugo Sowmya [id number] Raheem Deng 03/22/2022 1 [facility] Hugo Deng [id number] Raheem Deng 03/24/2023 1 [facility] Hugo Deng [id number] Raheem Deng 04/26/2024 2 [facility] [id number] Hugo Deng [id number] Raheem Deng 04/26/2024 1 [facility] Hugo Deng [id number] Raheem Deng Notes Date Note Type Note [...] Pam Duran MD [address], [place], [address], [facility] 02/27/2021 13:55:17 03/22/2022 text/html Annual GYNReport [...] 40 BRANDON Castillo [address], [place], [address], [facility] 03/22/2022 16:07:23 03/24/2023 text/html Annual GYNReport [...] screening BRANDON Castillo [address], [place], [address], [facility] 03/24/2023 11:50:17 04/26/2024 text/html Annual GYNReport ed bypatient.History: no gynecologic complaints Urinary symptoms:No hematuria Vulva:No genital lesion Vagina:Normal vaginal discharge Breast:No breast pain; No breast lump Sexual complaints:No sexual complaints;Pain during intercourse Menopausal Symptoms:Hot flashes;Inadequacy of lubrication of vaginal mucosa Psychological symptoms:No depression; No anxiety Preventive measures:Encourage self breast examination; Encourage regular exercise Asa Peñaloza MD [address], [place], [address], [facility] 04/26/2024 11:44:47 OBGyn Episode Ob Episode Information Episode Created Date Number of Fetuses Patient Bloodtype Patient rh Status Prepregnancy Weight lbs Domestic Partner Domestic Partner Phone Father Name Monogram Maker Status 02/28/20 21 1 CLOSED Fetus Data First Name Last Name Admitted to NICU Weight (g) Sex Living Outcome Pediatric Complications Fetus ID Race Codes Race Delivery Type 3259.96 5704 M 00276 Vaginal Delivery Jeremy Calculation Initial Jeremy Date [...] Domestic Partner Domestic Partner Phone Father Name Monogram Maker Status 02/28/20 21 1 CLOSED Fetus Data First Name Last Name Admitted to NICU Weight (g) Sex Living Outcome Pediatric Complications Fetus ID Race Codes Race Delivery Type 3628.73 6 M Full Term 31500 Vaginal Delivery Jeremy Calculation Initial Jeremy Date [...]
--- OUTSIDE RECORDS SUMMARY | 2024-10-23 00:58 | XMS_ITS | Clinical Summary ---
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 Gender Identity Not on file Sexual Orientation [...] of 3 - 19+ 3-dose series) 1992 HPV/Cotest (21-29) 1994 PAP SMEAR 1994 CERVICAL CANCER SCREENING 2003 HPV/Cotest (30-65) 2003 PAP SMEAR 2003 COLORECTAL SCREENING 2018 Colorectal Cancer Screening 2018 FIT-DNA Q 3 years 2018 FIT/FOBT Q 1 year 2018 Flex Sig/CT Colonography Q 5 years 2018 BREAST CANCER SCREENING 01/09/2020 01/08/2019 ZOSTER VACCINE (1 of 2) 2023 INFLUENZA VACCINE (#1) 2024 PNEUMOCOCCAL VACCINE 0-49 YEARS Aged Out No longer eligible based on patient's age to complete this topic Procedures Procedure Name Priority Date/Time Associated Diagnosis Comments MAMMOGRAM REPORT Routine 01/08/2019 from Last 3 Months or Most Recently Relevant to Health Maintenance Results * MAMMOGRAM REPORT (01/08/2019) us Abstract Provider MAMMO ORDERABLES Final Result [facility] from Last 3 Months or Most Recently Relevant to Health Maintenance Insurance [facility] [employer] Advance Directives For more information, please contact: [phone] * Full Code (Latest Code Status on File) Date Activated Date Inactivated Comments 11/15/2010 10:05 PM 11/19/2010 2:38 PM * Full Code Date Activated Date Inactivated Comments 11/15/2010 6:20 PM 11/15/2010 10:05 PM Care Teams Machine Printer Hose Relationship Specialty Start Date End Date Stephanie Heath MD PCP - General Obstetrics and Gynecology 02/15/19
--- OUTSIDE RECORDS SUMMARY | 2024-10-23 00:58 | XMS_ITS | Clinical Summary ---
Author Organization [facility] Address [address] [facility] [place] [address] Care Team Providers Care Pushcart Peddler Name Role Phone Unavailable Primary Care Provider Unavailabl e Source Comments [facility],non-owned Affiliates and Associated Physician Practices is amultiple site organization consisting of ambulatory clinics and hospital sitesin [place], [place], [place]. This disclosure is being madepursuant to the Care Everywhere program and may not contain all information available regarding this patient. 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[employer] Gender Identity Not on file Sexual Orientation [...] VACCINE (1 - 2023-2 5 season) 2024 DEPRESSION SCREENING 07/11/2024 INFLUENZA VACCINE (Season Ended) 2025 HIB VACCINE Aged Out No longer eligi ble based on patient's age to complete this topic HPV VACCINE Aged Out No longer eligi ble based on patient's age to complete this topic MENINGOCOCCAL (Group B) VACC INE SHARED DECISION-MAKING Aged Out No longer eligibl e based on patient's age to complete this topic MENINGOCOCCAL GROUPS A/C/Y/W VACCINE Aged Out No longer eligible b ased on patient's age to complete this topic Insurance [employer] NO INSURANCE Member Subscriber Plan / Payer (Ef fective for All Dates) Name:Sowmya Alice Member ID:Not on file Relation to Subscriber:Not on file Name:ALICE DENG Subscriber ID:Not on file (Home) Address: [address] [place] [address] Payer ID:Not on file Group ID:Not on file Type:Self Pay Address: [facility]
--- OUTSIDE RECORDS SUMMARY | 2024-10-23 00:58 | XMS_ITS | Data Portability ---
Author Organization [place] [facility], Main Office Address [address] [place] [address] Assessment Encounter Date Assessment Date Assessment LastModified by Organization Details LastModified Time 08/16/2024 08/16/2024 microcalcificati ons left breast BI-RADS 4. no palpable abnormalities noted. We will schedule for stereotactic biopsy at outside facility. We will follow up with patient after pathology [email or web address] Not available 08/16/2024 12:05:59 Plan of Treatment Reminders Order Date Submit Date Provider Last Modified By Organization Details Last Modified Time Details Appointments Follow Up 15 2024 09:45A EZEKIEL Dumont Not available Not available Not available Lab glycohemo globin, total, blood [address] (Lab), [address] [place], [address], 08/27/2024 11:38:03 glycohemo globin, total, blood 2023 024 [facility] (Lab), [address] [place], [address], 05/10/2024 14:14:03 glycohemo globin, total, blood [address] (Lab), [address] [place], [address], 12/21/2023 08:54:44 hemoglobi n A1C, fingersti ck 2023 [email or web address] [address] [place], [place], [address], 08/09/2023 11:41:12 Referral None recorded. Procedures None recorded. Surgeries None recorded. Imaging None recorded. Medication Orders losartan 50 mg-hydroc hlorothia zide 12.5 mg tablet 2023 024 [facility][id number], [address], [place], [place], [id number], 12/14/2023 12:45:44 promethaz ine-DM 6.25 mg-15 mg/5 mL oral syrup 2023 024 [facility]30286, [address], [place], [place], [id number], 12/14/2023 12:12:26 losartan 100 mg-hydroc hlorothia zide 12.5 mg tablet 2023 024 [facility] #16170, [address], [place], [place], [id number], 05/10/2024 11:35:20 metformin ER 500 mg tablet,ex tended release 24 hr 2023 024 [email or web address] [facility] #55340, [address] [facility], [place], [place], [id number], 08/09/2023 11:41:10 Patient TargetsNo targets recorded. Patient Instructions Encounter Date Encounter Id Patient Instructions Last Modified By Organization Details Last Modified Time 08/15/2024 [id number] a1c in oct was 6.4 [email or web address] Not available 08/18/2024 09:52:41 Reason for Referral None Reported. Results Created Date Observation Date Name Description Value Unit Range Abnormal Flag Note LastModifiedBy Organization Detail LastModifiedTime 08/09/19 24 08/09/2023 hemog lobin A1C, finge rstic k HgbA1C 6.6 Not Available s[address] [place], [place], [address], 08/09/2023 11:29:42 07/20/19 25 07/20/2024 MAMMO , scree kanu, digit al, bilat eral No observ ation record ed. [address] [facility] [address], [place], [address], 07/23/2024 10:00:09 08/06/19 25 08/06/2024 MAMMO , scree kanu, digit al, bilat eral No observ ation record ed. [address] [facility] [address], [place], [address], 08/10/2024 11:39:14 08/30/19 25 08/30/2024 biops y of breas t; gagan aparicio , need e core, using imagi ng dejon nce (PROC ) No observ ation record ed. [email or web address] [address], [place], [address], 09/05/2024 08:57:44 09/05/19 25 08/30/2024 biops y, breas t (PROC ) No observ ation record ed. [address], [place], [address], 09/05/2024 09:59:15 Result Notes None recorded. Problems Name Problem SNOMED Code Status Onset Date Resolution Date Notes Provider Name and Address Organization Details Recorded Time Past pregnanc y history of section 230400993 Completed Not Available [facility] 3 16:39:46 Family history of neoplasm of breast 514012464 Active maternal aunt Not Available [facility] 3 16:39:46 Past pregnanc y history of gestatio nal diabetes mellitus 102989087 Completed Not Available [facility] 3 16:39:46 Impaired fasting glycemia 739054732 Active 2022 Elieser Claire MD [address], [address], [place], [address] , [place] [facility] 3 15:14:50 [facility] hyperten tricia 72336477 Active 2022 Elieser Claire MD [address], [address], [place], [address] , [place] [facility] [employer] 3 15:15:18 Type 2 diabetes mellitus without complica tion 368072514 Active 2022 Elieser Calire MD [address], [address], [place], [address] , [place] [facility] [employer] [facility] [employer] 3 14:49:39 Cough 58074342 Active 2023 EZEKIEL Malin [address], [address], [place], [address] , [place] [facility] [employer] [place] [employer] 4 11:40:34 Adult health examinat ion Active 2023 EZEKIEL Malin [address], [address], [place], [address] , [employer] [facility] [employer] [facility] [employer] 4 11:40:32 Mammogra phy abnormal 242789252 Active 2024 EZEKIEL Malin [address], [address], [place], [address] , [employer] [facility] [employer] [facility] [employer] 5 09:39:01 Microcal cificati ons of the breast 59632353 Active 2024 Fuentes donis MD [address], [address], [place], [address] , [place] [facility] [place] [facility] 5 17:15:03 Problem Notes None recorded. Procedures Surgical History Date Name Laterality Status Provider Name and Address Organization Details Recorded Time 08/30/19 25 biopsy of breast completed MARY Mendoza [facility] 09/05/2024 08:57:31 08/06/19 25 screening mammography completed MARY Mendoza [facility] 09/05/2024 08:56:29 completed Not Available [facility] 0 09/08/2022 16:39:20 Imaging Results Imaging Date Name Status LastModified by Organiz ation Details LastModified Time 07/20/2024 MAMMO, screening, digital, bilateral completed [address], [place], [address], 07/23/2024 10:00:09 08/06/2024 MAMMO, screening, digital, bilateral completed [address], [place], [address], 08/10/2024 11:39:14 08/30/2024 biopsy of breast; percutaneous, needle core, using imaging guidance (PROC) active [address], [address], 09/05/2024 08:57:44 08/30/2024 biopsy, breast (PROC) active [address], [address], 09/05/2024 09:59:15 Procedure Notes None recorded. Medical Equipment None Reported. Allergies No known drug allergies Medications Name Sig Start Date Stop Date Status Note LastModified by Organization Details LastModified Time promethaz ine-DM 6.25 mg-15 mg/5 mL oral syrup TAKE 5 ML BY MOUTH EVERY 4 HOURS FOR 10 DAYS NEEDED 12/13 completed Not Available Not Available Not Available penicilli n V potassium 500 mg tablet TK 1 T PO QID TAT active Not Available Not Available No t Available amlodipin e 2.5 mg tablet TAKE 1 TABLET BY MOUTH EVERY DAY 08/09 completed BP dropped under 100 Not Available Not Available Not Available amlodipin e 5 mg tablet TAKE 1 TABLET BY MOUTH EVERY DAY 08/09 completed stopped taking getting dizzy Not Available Not Available Not Available progester one 50 mg/mL intramusc ular oil active Not Available Not Available Not Available estradiol 1 mg tablet TAKE 1 TABLET BY MOUTH EVERY DAY active Not Available Not Available No t Available chorionic gonadotro pin, human 10,000 unit IM powder for solution active Not Available Not Available Not Available methylpre dnisolone 8 mg tablet active Not Available Not Available Not Available hydrochlo rothiazid e 12.5 mg capsule TAKE 1 CAPSULE BY MOUTH EVERY DAY 10/08 completed Not Available Not Available Not Available losartan 50 mg-hydroc hlorothia zide 12.5 mg tablet TAKE 1 TABLET BY MOUTH EVERY DAY IN THE MORNING 2024 active Not Available Not Available Not Avai lable metformin ER 500 mg tablet,ex tended release 24 hr TAKE 2 TABLETS BY MOUTH EVERY DAY active Not Available Not Available No t Available leuprolid e 1 mg/0.2 mL subcutane ous kit active Not Available Not Available Not Available progester one micronize d 100 mg capsule TAKE 1 CAPSULE BY MOUTH EVERY DAY active Not Available Not Available No t Available azithromy chance 500 mg tablet active Not Available Not Available No t Available Menopur 75 unit subcutane ous solution active Not Available Not Available Not Available Follistim AQ 900 unit/1.08 mL subcutane ous cartridge active Not Available Not Available No t Available losartan 100 mg-hydroc hlorothia zide 12.5 mg tablet TAKE 1 TABLET BY MOUTH EVERY DAY 05/10 completed Not Available Not Available Not Available Prenate Elite (iron asparto glycinate ) 20 mg iron-1 mg tablet active Not Available Not Available Not Available Vitals Date Recorded Body height Body mass index (BMI) Body weight Body temperature Heart rate Oxygen saturation Oxygen saturation in Arterial blood by Pulse oximetry Systolic blood pressure Diastolic blood pressure Provider Name and Address Organization Details Last Updated DateTime 4 172.72 cm 27.1 kg/m2 21116.4 4 g 97.1 [degF] 75 /min 98 % 98 % 116 mm[Hg] 82 mm[Hg] Lisset Sylvester MA [place] [facility] 4 11:24:46 Date Recorded Body height Body mass index (BMI) Body weight Body temperature Heart rate Oxygen saturation Oxygen saturation in Arterial blood by Pulse oximetry Respiratory rate Systolic blood pressure Diastolic blood pressure Provider Name and Address Organization Details Last Updated DateTime 4 172.72 cm 26.2 kg/m2 42418.8 9 g 97.7 [degF] 68 /min 99 % 99 % 16 /min 110 mm[Hg] 80 mm[Hg] Kemi Sequeira RN [facility] [email or web address] [facility] 4 12:14:01 Date Recorded Body height Body mass index (BMI) Body weight Body temperature Heart rate Oxygen saturation Oxygen saturation in Arterial blood by Pulse oximetry Systolic blood pressure Diastolic blood pressure Provider Name and Address Organization Details Last Updated DateTime 4 172.72 cm 27.4 kg/m2 64628.6 3 g 97.7 [degF] 73 /min 98 % 98 % 120 mm[Hg] 90 mm[Hg] eKmi Sequeira RN [facility] [email or web address] [facility] 4 11:38:05 Date Recorded Body height Body mass index (BMI) Body weight Body temperature Oxygen saturation Oxygen saturation in Arterial blood by Pulse oximetry Heart rate Systolic blood pressure Diastolic blood pressure Provider Name and Address Organization Details Last Updated DateTime 5 172.72 cm 27.9 kg/m2 19861.4 8 g 98.1 [degF] 98 % 98 % 79 /min 118 mm[Hg] 86 mm[Hg] Alexx Booth RN [facility] [email or web address] [facility] 5 11:15:14 Date Recorded Body height Body mass index (BMI) Body weight Body temperature Respiratory rate Heart rate Oxygen saturation Oxygen saturation in Arterial blood by Pulse oximetry Systolic blood pressure Diastolic blood pressure Provider Name and Address Organization Details Last Updated DateTime 5 172.72 cm 27.8 kg/m2 53602.4 g 98 [degF] 14 /min 80 /min 97 % 97 % 120 mm[Hg] 80 mm[Hg] Nicci Funes [facility] [email or web address] [facility] 5 11:49:41 Social History Question Answer Notes LastModified by Organizat ion Details LastModified Time Tobacco Smoking Status Never Smoker Not Available [facility] 09/08/2022 16:39:15 In The 14 Days Before Symptom Onset, Have You Had Close Contact With A Laboratory-confirm ed COVID-19 While That Case Was Ill? No [id number] Information not available 09/08/2022 In The 14 Days Before Symptom Onset, Have You Had Close Contact With A Person Who Is Under Investigation For COVID-19 While That Person Was Ill? No [id number] Information not available 09/08/2022 Have You Recently Traveled Abroad? No [id number] Information not available 09/08/2022 Sex: Unknown Functional Status None recorded. Mental Status None recorded. Family History Relationship Description Onset Age of this Age Resolved Age Notes LastModified by Organization Details LastModified Time Father Hypertensive disorder [email or web address] [id number] Not available 09/08/2022 16:39:20 Father Family history of stroke [email or web address] Not available 10/13 14:50:36 Father Pulmonary embolism Not available 10/13 14:50:36 Mother Malignant tumor of colon Not available 10/13 14:50:36 Maternal Aunt Malignant tumor of breast [email or web address] Not available 10/13 14:50:36 Medical History Condition Response BLINDNESS N RHEUMATIC FEVER N KIDNEY STONES N BLADDER PROBLEMS N MRSA N OTHER # 1 N POLIO N LUNG DISEASE/DISORDER N HISTORY OF DRUG ABUSE N RADIATION / CHEMOTHERAPY N COPD N Other # 2 N BLOOD DISEASES N SURGERY N EAR OR HEARING PROBLEMS N MUMPS N SHINGLES N FEMALE PROBLEMS / INFECTIONS N BOWEL PROBLEMS N DEPRESSION (INCLUDING POST ) Y STROKE/TIA N THYROID DISEASE N ULCERS N BENIGN PROSTATIC HYPERPLASIA N MEASLES N CERVICALGIA N TB SKIN TEST N HYPOTENSION N MYOCARDIAL INFARCTION N PARAPELGIA N OBESITY N GERD/NAUSEA N ANEURYSM N URINARY/BLADDER/KIDNEY PROBLEMS N CORONARY ARTERY DISEASE (CAD) N MENIERE'S DISEASE N ADDICTION CONCERNS N ENDOMETRIOSIS N USE OF BLOOD THINNERS N SKIN PROBLEMS N EMPHYSEMA N GASTROINTESTINAL DISORDER N MUSCLE,JOINT OR BONE PROBLEMS N GASTROINTESTINAL BLEEDING N BLOOD CLOTS N ASTHMA N CATARACTS N ERECTILE DYSFUNCTION N GI PROBLEMS N CHF N Low Testosterone N NEUROPATHY N INFERTILITY N AIDS/HIV N FRACTURES N CHEMOTHERAPY / RADIATION N VISION/EYE PROBLEMS N LIVER DISEASE N MALE HYPOGONADISM N HYPERTENSION N TOURETTE'S N ANXIETY DISORDER N BLOOD TRANSFUSION N ANEMIA/BLOOD DISORDER N CHRONIC EAR INFECTIONS N BRONCHITIS N TUBERCULOSIS N GLAUCOMA N FOOT PROBLEM N DIVERTICULITIS N SLEEP APNEA N CHICKENPOX N ALLERGIES/HAYFEVER N INFECTIOUS DISEASE N PROSTATE N HEART ARRHYTHMIA N INSOMNIA N HIGH CHOLESTEROL / HYPERLIPIDEMIA N EYE PROBLEMS N HYPERTHYROIDISM N EATING DISORDER N EDEMA N CHRONIC PAIN SYNDROME N CONSTIPATION N CAROTID BLOCKAGE N BACK / NECK PROBLEMS N HAVE YOU BEEN HOSPITALIZED OR SEEN IN [facility] IN THE PAST YEAR ? N ATHEROSCLEROSIS N BREAST PROBLEMS N DIALYSIS N ECZEMA N FIBROMYALGIA N OSTEOPOROSIS N ARTHRITIS N NO SIGNIFICANT PAST MEDICAL HISTORY N APPENDICITIS N DIABETES, TYPE Y BAD TEETH N HEARTBURN / REFLUX N ADD/ADHD N AUTISM SPECTRUM DISORDER (ASD) N HEPATITIS / LIVER DISEASE N PULMONARY DISEASE N GOUT N SLEEP DISORDER N ALZHEIMER'S DISEASE N PAIN N DEMENTIA N HERPES N SEIZURES/EPILEPSY N HEADACHES/MIGRAINES N VASCULAR DISEASE N PACEMAKER N DIZZINESS N HEART DISEASE/HEART PROBLEMS N KIDNEY DISEASE N SCARLET FEVER N MULTIPLE SCLEROSIS N DEVELOPMENTAL OR BEHAVIORAL DISORDERS N MENTAL DISORDER/ILLNESS N CANCER: SPECIFY N CARDIAC ARRHYTHMIA N PNEUMONIA N ATRIAL FIBRILLATION N Gall Stones N PULMONARY EMBOLISM N AUTOIMMUNE DISEASE N Gynecological HistoryNo gynecological history recorded. Obstetrics History GPAL:G 0 P 0 0 0 0 Past Encounters Encounter ID Performer Location Encounter Start Date Encounter Closed Date Diagnosis/Indication Diagnosis SNOMED-CT Code Diagnosis ICD10 Code Diagnosis Note [id number] [facility] [place] [address] [place] [address] 03/17/2021 00:00:00 03/18/2021 06:28:03 [id number] [facility] [place] [address] [facility] [place] [address] 04/07/2021 00:00:00 04/07/2021 21:00:16 [id number] [facility] [place] [address] [place] [address] [place] [address] 05/04/2021 00:00:00 05/05/2021 06:00:55 [id number] [facility] [place] [address] [facility] [place] [address] 06/12/2021 00:00:00 06/12/2021 12:32:14 [id number] [facility] [place] [address] [facility] [place] [address] 07/21/2021 00:00:00 07/21/2021 19:44:16 [id number] [facility] [place] [address] [facility] [place] [address] 10/08/2021 00:00:00 10/08/2021 20:35:08 [id number] Elieser Claire MD [facility] [place] [address] [facility] [place] [address] 10/13/2022 14:48:16 10/13/2022 15:23:58 Impaired fasting glycemia 283631914 R73.01 A1C is 6.7%. New onset DM 2 Watch BS F/u in 3 months. Essential hypertension 91199653 I10 Will increase amlodipine to 5 mg daily Family his tory of coronary arteriosclerosis 883909965 Z82.49 [id number] Elieser Claire MD [facility] [place] [address] [place] [address] [place] [address] 03/07/2023 14:22:51 03/07/2023 14:54:40 Type 2 diabetes mellitus without complication 065152864 E11.9 A1C is 7%. Needs to increase metformin to 2 tabs daily. Will f/u in 3 months. [id number] EZEKIEL Malin [facility] [place] [address] [facility] [place] [address] 08/09/2023 11:17:03 08/09/2023 11:46:40 Type 2 diabetes mellitus without complication 788194189 E11.9 Essential hypertension 80102010 I10 Cough 07991188 R05.9 [id number] EZEKIEL Malin [facility] [place] [address] [place] [address] [place] [address] 12/14/2023 12:05:47 12/14/2023 12:50:02 Essential hypertension 44782654 I10 Type 2 sydnee betes mellitus without complication 139076654 E11.9 [id number] EZEKIEL Malin [facility] [place] [address] [facility] [place] [address] 05/10/2024 11:31:23 05/10/2024 11:54:05 Adult health examination 577668243 Z00.00 Essential hypertension 89429880 I10 Type 2 sydnee betes mellitus without complication 223372861 E11.9 [id number] EZEKIEL Malin [facility] [address] 08/15/2024 11:04:59 08/15/2024 11:23:38 Mammography abnormal 606637297 R92.8 Type 2 sydnee betes mellitus without complication 205455921 E11.9 Essential hypertension 42403162 I10 [id number] Fuentes donis MD [facility] General Surgery [address] [place] [address] 08/16/2024 11:26:13 08/27/2024 17:01:27 Microcalcifications of the breast 79051699 R92.0 Left Breast Health Concerns Section Related Observation LastModified by Organization Detai ls LastModified Time None Recorded Concern Status LastModified by Organization Details LastModified Time None Recorded Advance Directives Directive None Recorded Payers Encounter Date Sequence Insurance Name Policy Number Policy Dietz Covered Member ID Dietz Member ID Guarantor Name 08/09/2023 1 [employer] [facility] Raheem Frailey [id number] Raheem Frailey 12/14/2023 1 [employer] [facility] Raheem Frailey [id number] Raheem Frailey 05/10/2024 1 [employer] [facility] Raheem Frailey [id number] Raheem Frailey 08/15/2024 1 [employer] [facility] Raheem Frailey [id number] Raheem Frailey 08/16/2024 1 [employer] [facility] Raheem Frailey [id number] Raheem Frailey Notes Date Note Type Note Provider Name and Address Organization Details Recorded Time 4 text/html cough hard for a week , better EZEKIEL Malin [address], [place], [address], [facility] 08/15/2023 16:48:14 4 text/html no changes EZEKIEL Malin [address], [place], [address], [employer] [facility] 01/04/2024 14:19:18 4 text/html blood sugars up a little EZEKIEL Malin [address] [facility] [address], [place], [address], [employer] [facility] 06/04/2024 16:01:44 5 text/html abnormal mammogram , hs appt with breast surgeon for a biopsy . EZEKIEL Malin [address] [facility] [address], [place], [address], [employer] [facility] 08/18/2024 09:54:17 5 text/html patient with newly discovered microcalcifications left breast on mammogram. Patient has had mammograms yearly for many years since her 40s. Has had a biopsy on the left side before which was benign per her report. Denies nipple discharge denies pain. Patient had a maternal aunt with breast cancer in her 40s. Has 2 children Fuentes Palafox MD [address], [facility] [address], [place], [address], [employer] [facility] 08/16/2024 17:15:51 OBGyn Episode No OBEpisode recorded.
[2024-10-23 12:46] VITALS: BP 134/89; PULSE 79; RESP 16; TEMP 36.8; O2SAT 97
[2024-10-23] MEDS: LACTATED RINGERS 1,000 ML 150 ML IV CONT (12:56)
[2024-10-23 13:02] LABS: Glucose Point of Care 114 mg/dl (65-105)
--- NOTE | 2024-10-23 13:02 | WPDANESEPPF ---
Anes - Initial Pre Proc Eval Procedure: Operation Date: 10/23/24 13:30 Proposed Procedures p Colonoscopy - Medhat Best MD Date/Time: 10/23/24 13:02 Surgeon: Medhat Best MD Pre Op Diagnosis: screening colon Patient Data Age: 49 Gender: F Height: 1.73 m Weight: 87 kg Last Vital Signs Temp 36.8 C 10/23/24 12:46 Pulse 79 10/23/24 12:46 Resp 16 10/23/24 12:46 BP 134/89 10/23/24 12:46 Pulse Ox 97 10/23/24 12:46 O2 Del Method Room Air 10/23/24 12:46 Allergies Allergy/AdvReac Type Severity Reaction Status Date / Time No Known Allergies Allergy Mild Verified 10/23/24 12:45 Home Medications ?Medication ?Instructions ?Recorded ?Confirmed ?Type estradiol 1 mg tablet 1 mg PO DAILY 08/29/24 10/23/24 History losartan 100 1 tablet PO DAILY 08/29/24 10/23/24 History mg-hydrochlorothiazide 12.5 mg tablet metformin 500 mg tablet,extended 500 mg PO DAILY 08/29/24 10/23/24 History release 24 hr Laboratory Tests 10/23/24 12:59 POC Capillary Glucose Pending Patient hx anesthesia problems: none Family hx anesthesia problems: none Results Review: All pre-operative results and documents have been reviewed as part of the pre-operative evaluation. [facility] Past Medical History Medical History Colon cancer screening Obesity HTN (hypertension) Social History Social History Smoking status: Never smoker Alcohol intake: current Substance use type: does not use Living arrangements: with family Spiritual care concerns: No Anes - Eval Final PreProcedure Day of Procedure 10/23/24 13:02 Patient weight: overweight Heart: regular rate and rhythm Lungs: clear to auscultation Airway: Mallampati scale class II Neurological: alert and oriented Last oral intake: >/= 8 hours ASA classification: II Emergent: no Anesthetic plan: proceed Anesthesia type and monitoring: general GIVS and standard monitoring Results Review: All pre-operative results and documents have been reviewed as part of the pre-operative evaluation. Informed Consent: The patient's anesthetic plan and its attendant risks and benefits were discussed with the patient/family/POA. Questions were solicited and answers provided to the satisfaction of the patient/family/POA.
--- NOTE | 2024-10-23 13:51 | PM.HPGS ---
History of Present Illness History of Present Illness Consent: Risks, benefits, and alternatives have been discussed and questions answered. Patient agrees to proceed with procedure. Chief complaint: screening colon Narrative: Raheem Deng is a 49 year old female with colon polyp in 2020 Review of Systems Review of Systems: All systems reviewed & are unremarkable except as noted in HPI and below PMFSH Past Medical History Medical History (Updated 10/23/24 @ 13:52 by Medhat Best MD) Adenomatous colon polyp Colon cancer screening Obesity HTN (hypertension) Social History Social History Smoking status: Never smoker Alcohol intake: current Substance use type: does not use Living arrangements: with family Spiritual care concerns: No Meds Home Medications and Allergies Home Medications ?Medication ?Instructions ?Recorded ?Confirmed ?Type estradiol 1 mg tablet 1 mg PO DAILY 08/29/24 10/23/24 History losartan 100 1 tablet PO DAILY 08/29/24 10/23/24 History mg-hydrochlorothiazide 12.5 mg tablet metformin 500 mg tablet,extended 500 mg PO DAILY 08/29/24 10/23/24 History release 24 hr Allergies Allergy/AdvReac Type Severity Reaction Status Date / Time No Known Allergies Allergy Mild Verified 10/23/24 12:45 Vital Signs Vital Signs - 24 hr 10/23/24 12:46 Temperature 98.3 F Pulse Rate 79 Respiratory Rate 16 Blood Pressure 134/89 Pulse Oximetry 97 Oxygen Delivery Room Air Exam Const: General: comfortable and no acute distress HENMT: Face/Nose/Sinus: Normal nares present Eyes: General: appearance normal, both eyes and all related structures Neck: Neck: no JVD Resp: Auscultation: clear to auscultation bilaterally Cardio: Rate: regular rate Rhythm: regular rhythm GI: Inspection: non-distended GI Palp: Yes Soft to palpation Skin: General skin exam: normal color Neuro: General: gait normal Speech: normal speech Extrem: General: normal to inspection Psych: Mental Status: mental status grossly normal Assessment and Plan Assessment and plan (1) Adenomatous colon polyp: Code(s): D12.6 - Benign neoplasm of colon, unspecified Status: Acute Assessment and Plan: colonoscopy
[2024-10-23 14:08] VITALS: BP 105/71; PULSE 72; RESP 19; O2SAT 98
[2024-10-23 14:18] VITALS: BP 109/78; PULSE 69; RESP 17; O2SAT 97
[2024-10-23 14:28] VITALS: BP 117/81; PULSE 68; RESP 19; O2SAT 97
== END 2024-10-23 14:40 | disposition home or self-care (01) ==
PROVIDERS: PCP Physician Assistant; Visit Provider Internal Medicine Gastroenterology
PROC: 0DJD8ZZ Inspection of Lower Intestinal Tract, Via Natural or Artificial Opening Endoscopic (ICD-10-PCS; CPT 45378; principal; 2024-10-23 13:30)
DX: Z12.11 Encounter for screening for malignant neoplasm of colon (principal); D12.3 Benign neoplasm of transverse colon; K64.8 Other hemorrhoids; I10 Essential (primary) hypertension; Z79.84 Long term (current) use of oral hypoglycemic drugs
CPT/HCPCS: 45380; 82948; 88305; J2704; J7120